=== PATIENT | male | born 1980 | race Caucasian/White ===

== ENCOUNTER 2024-03-17 20:38 | Inpatient (IN) ==
[2024-03-17] MEDS: SODIUM CHLORIDE 0.9% 1,000 ML IV SCH (21:16)
--- NOTE | 2024-03-17 21:19 | Emergency Department Note ---
Impression & Plan Depression with suicidal ideation, Suicide gesture, Carbon monoxide poisoning, Alcoholic intoxication ED Provider Note NAME: CAMERON Perdomo MCKEON AGE: 43 SEX: M : 1980 ARRIVES VIA: Walk-In INFORMANT: Patient, the patient's significant other is ED PROVIDER(S): Chalo Koo DO CHIEF COMPLAINT: Depression with SI HPI: The patient is a 43-year-old male who presented to the emergency department with his significant other for an evaluation of depression with suicidal gesture. The patient states that he has been feeling depressed recently. He states there is no specific stressor but he was not feeling himself today. He states that he went to a wooded area today and has been there all day. His significant other thought he was at work. He texted her today stating that he needed help and send and address. When the patient's significant other arrived she found him in his vehicle. He admitted that he had put a hose from the exhaust into his vehicle jukebox route driver compartment in an attempt to with suicidal gesture and carbon oxide poisoning. The patient states he has nausea. He also has a headache. He states he feels short of breath. The patient denies having any drug use but does admit to some alcohol use. The patient states that he has no therapist. He does not take any medication for the symptoms. He has not been admitted to the hospital for mental health issues. ROS: See above HPI for pertinent positives & negatives. A total of 10 systems reviewed and were otherwise negative. PAST MEDICAL HISTORY: See Below PAST SURGICAL HISTORY: See Below FAMILY HISTORY: See Below SOCIAL HISTORY: See Below HOME MEDICATIONS: See Below ALLERGIES: See Below VITALS: See Below PHYSICAL EXAMINATION: GENERAL: The patient is awake and alert. He is very anxious and tearful. EYES: The conjunctivae are injected bilaterally. The pupils are round and reactive. EARS, NOSE, MOUTH AND THROAT: The nose is without any evidence of any deformity. NECK: The neck is nontender and supple. RESPIRATORY: Normal respiratory effort is noted there is no evidence of wheezing rhonchi or rales CARDIOVASCULAR: Regular rate and rhythm noted there no murmurs rubs or gallops normal S1 normal S2. GASTROINTESTINAL: The abdomen is soft. Abdomen is nontender. MUSCULOSKELETAL/EXTREMITIES: There is no evidence of gross deformity full range of motion is noted in the hips and shoulders. SKIN: There is no obvious evidence of any rash. There are no petechiae, pallor or cyanosis noted. NEUROLOGIC: Patient is awake alert and oriented x3 strength is symmetric patellar reflexes are 2+ bilaterally PSYCH: The patient makes poor eye contact mostly evaluation. The patient is very tearful. His affect is flat. The patient mitts to continued thoughts of harming himself. MEDICAL DECISION MAKING: The patient is a 43-year-old male who presented to the emergency department after a significant suicidal gesture. The patient attempted to harm himself this evening with carbon oxide. The patient was placed on a nonrebreather mask upon arrival to the emergency department. I discussed the patient's laboratory and radiographic studies with him. I discussed his condition with the mental health child welfare caseworker. I discussed his condition with poison control. At this point they would recommend 4 hours total of nonrebreather mask. This would take his to approximately 1 AM. They also recommended 10 mg of dexamethasone now followed by 10 mg of dexamethasone orally for 2 days. The IV dose was ordered by myself. I discussed the patient's condition with his significant other as well as his other family members. Patient was signed out to Dr. Omer at change of shift. Please see his note for continuation of care and further disposition. Triage Nursing notes reviewed. Prior medical records reviewed Vital Signs: reviewed and remarkable for elevated blood pressure. Differential diagnosis: Mood disorder, infection, hypoglycemia, electrolyte abnormalities, cardiac sources, intracerebral event, toxicologic, trauma, neurologic, as well as other pathologies. ER treatment provided: See below Diagnostics interpreted by me: ECG: EKG was obtained in the emergency department. My interpretation is normal sinus rhythm at 86 bpm. There is no ectopy. There is no acute ST segment abnormalities noted. This was compared to a tracing from July 04, 2004. No changes were noted. Cardiac Monitoring: An order was placed for continuous cardiac monitoring. The monitor shows a rate of 98 bpm with sinus rhythm. Laboratory studies: As stated above and show below. Imaging studies: See below. Radiographic imaging was reviewed by myself Consultation(s): I discussed this case with the [facility]. They reviewed the patient's laboratory and radiographic studies. They recommend that we keep the patient on a nonrebreather mask for a total of 4 hours. They do not feel there is a reason to recheck the carbon monoxide level at that time. They also recommend 10 mg of dexamethasone now followed by 10 mg of dexamethasone orally for 2 days. The patient will be medically cleared after he has been on the nonrebreather for 4 hours total. I discussed this case with the emergency department off child welfare caseworker. I have personally spent greater than 45 minutes of critical care time in the direct management of this patient. This includes bedside care, interpretation of diagnostic studies, and testing, discussion with consultants, patient, and family members, and other required patient management activities. This 45 minutes is in excess of all separately billable procedures. Past Med/Surg History Problem List (Updated 03/18/24 @ 00:00 by Chalo Koo DO) Alcoholic intoxication (Acute) Carbon monoxide poisoning (Acute) Suicide gesture (Acute) Depression with suicidal ideation (Acute) Hemorrhoids AND POLYP BY RECTAL EXAM -REASON FOR UPCOMING PROCEDURE Encounter for pre-operative examination Hx of testicular cancer Smoker Annual physical exam Hemorrhoids Mild malnutrition Vitamin D deficiency Anal polyp Medical History History of testicular cancer 23-24 YR AGO, SX INTERVENTION Surgical History H/O lymph node biopsy History of removal of testicle RIGHT Family History Grandfather (Maternal) Depression Denies family history of Ovarian cancer Prostate cancer Diabetes Myocardial infarction Breast cancer Colorectal cancer Social History Smoking Status: Current every day smoker Tobacco Type: Cigarettes Age Started Using Tobacco: 19; packs per day: 0.5; Cigarettes Per Day: 10 CIGS PER DAY FOR PAST 20 YRS/ ADVISED NPO; Second Hand Exposure: Yes; Do You Dip or Chew Tobacco: No; Hx Alcohol Use: Yes Alcohol type: beer Alcohol type Comment: 1-3 Alcohol Intake Frequency: 4 or More x per/Week Alcohol Intake Frequency Comment: daily Hx Substance Use: Yes Non-Prescribed Medications: Marijuana Last Used Substance: Days (ago) Substance Use Type Other:: MARIJUANA A COUPLE TIMES A WEEK , NOT DAILY (ADVISED) Preferred Language: Greek Communication Ability: Effective Delivery Person Required: No Beliefs That Will Affect Care: None marital status: Single Current Living Situation: Significant Other current occupational status: employed current occupation: [employer] How many Children do You have: 0 Feels Safe at Home: Yes Childhood Exposure to Second-Hand Smoke: Yes Diet: vegetarian caffeine: Yes during the past year weight has: remained stable Dental Care, Regularly: No Physical Activity Frequency: Daily Seatbelt Use: always Sunscreen Use: Yes (sometimes.) Assistive Devices: Glasses Allergies Allergies Allergy/AdvReac Type Severity Reaction Status Date / Time latex Allergy Mild POWDER Verified 03/28/22 08:33 LATEX GLOVES - HANDS BREAK OUT Home Meds Home Medications Medication Instructions Recorded Confirmed No Known Home Medications 03/17/24 03/17/24 Results & Data (ED) Vital Signs Vital Signs - 24 hr 03/17/24 20:44 03/17/24 21:05 03/17/24 21:07 Temperature 36.6 C Temperature Source Temporal Artery Scan Pulse Rate 105 H 80 Pulse Rate [Apical] 85 Respiratory Rate 18 16 20 Respiratory Effort / Characteristics Non-Labored Non-Labored Respiratory Depth Normal Normal Respiratory Pattern Regular Blood Pressure 130/86 Blood Pressure [Left Arm] 141/87 H Blood Pressure Mean 100 Blood Pressure Mean [Left Arm] 105 Pulse Oximetry 99 100 100 Oxygen Delivery Method Room Air Non-rebreather Non-rebreather Oxygen Flow Rate 6 6 Sepsis Recent Fever Within 48 Hours No Sepsis New/Unexplained Change in Mental Status No Sepsis Action Taken by Nursing No Action Required 03/17/24 21:08 Temperature Temperature Source Pulse Rate 98 H Pulse Rate [Apical] Respiratory Rate Respiratory Effort / Characteristics Respiratory Depth Respiratory Pattern Blood Pressure Blood Pressure [Left Arm] Blood Pressure Mean Blood Pressure Mean [Left Arm] Pulse Oximetry Oxygen Delivery Method Oxygen Flow Rate Sepsis Recent Fever Within 48 Hours Sepsis New/Unexplained Change in Mental Status Sepsis Action Taken by Jail Medications Current Medication List: was personally reviewed by me Laboratory Data Attestation: I reviewed the patient's lab results. 03/17/24 21:05 03/17/24 21:05 Lab Results 03/17/24 03/17/24 03/17/24 Range/Units 21:05 21:26 23:00 WBC 13.94 H (4.8-10.8) K/ul RBC 5.55 (4.70-6.10) M/uL Hgb 17.1 (14.0-18.0) g/dl Hct 49.1 (42.0-52.0) % MCV 88.5 (80.0-100.0) fL MCH 30.8 (25.0-34.0) pg MCHC 34.8 (32.0-36.0) g/dL RDW Std Deviation 41.5 (36.4-46.3) fL RDW Coeff of Jose Francisco 12.8 (11.5-14.5) % Plt Count 349 (130-400) K/uL MPV 8.7 L (9.4-12.4) fL Immature Gran % (Auto) 0.2 % Neut % (Auto) 57.1 % Lymph % (Auto) 34.8 % Clark % (Auto) 5.9 % Eos % (Auto) 1.1 % Baso % (Auto) 0.9 % Neut # (Auto) 7.97 H (1.40-6.50) K/uL Lymph # (Auto) 4.85 H (1.20-3.40) K/uL Clark # (Auto) 0.82 H (0.11-0.59) K/uL Eos # (Auto) 0.15 (0.00-0.50) K/uL Baso # (Auto) 0.12 (0.00-0.20) K/uL Immature Gran # (Auto) 0.03 (0.01-0.20) K/uL PT 10.2 (9.0-12.0) Seconds INR 0.9 (0.9-1.1) APTT 27 (21-31) Seconds PTT Ratio 1.0 VBG pH 7.50 H (7.36-7.41) VBG pCO2 29 L (38-50) mmHg VBG pO2 < 20 mmHg VBG HCO3 23 mmol/L VBG O2 Saturation < 60.0 % VBG Base Excess 0.4 mEq/L Carboxyhemoglobin 13.8 H* 7.3 % THgb Sodium 139 (136-145) mmol/L Potassium 4.0 (3.5-5.1) mmol/L Chloride 103 (98-107) mmol/L Carbon Dioxide 22 (21-32) mmol/L Anion Gap 14 H (3-11) BUN 7 (6-23) mg/dl Creatinine 0.82 (0.6-1.4) mg/dl Est Cr Clr Drug Dosing 107.3 ml/min Est GFR ( Amer) 127.3 ml/min Est GFR (Non-Af Amer) 109.8 ml/min BUN/Creatinine Ratio 8.5 L (10-20) Glucose 85 (70-99(Fasting)) mg/dl Calcium 9.9 (8.6-10.3) mg/dl Magnesium 2.4 (1.7-2.4) mg/dl Total Bilirubin 0.8 (0.2-1.0) mg/dl AST 21 (13-39) U/L ALT 17 (7-52) U/L Alkaline Phosphatase 68 (34-104) U/L Total Creatine Kinase 113 (30-223) U/L Troponin I High Sens 3.2 (0-20) pg/ml Total Protein 8.4 H (6.0-8.3) gm/dl Albumin 5.2 H (3.4-5.0) gm/dl Globulin 3.2 (2.5-4.0) gm/dl Albumin/Globulin Ratio 1.6 (0.9-2) Lipase 21 (11-82) U/L Salicylates < 3.0 L (3.0-30) mg/dl Acetaminophen < 3 L (10-30) ug/ml Ethyl Alcohol mg/dL 132.3 H (<10.0) mg/dl SARS-CoV-2, RNA, NAAT NEGATIVE (NEGATIVE) Administered Medications Discontinued Medications Sodium Chloride (Nss) 1,000 mls @ 999 mls/hr IV .Q1H1M TATI Stop: 03/17/24 22:00 Last Infusion: 03/17/24 22:19 Dose: Infused Documented By: Admin: 03/17/24 21:16 Dose: 999 mls/hr Documented By: BASIM Imaging Data Attestation: I personally reviewed and interpreted this imaging study as follows: My Impression: 1 view chest x-ray was obtained in the emergency department. My interpretation is no free air or definite infiltrate, hypoventilation was noted, final report pending. Discharge Plan Visit Data Chief Complaint: Mental Health Evaluation Stated Complaint: ATTEMPTED SUICIDE, INHALED GAS/NASAL PAIN ED Provider: Balta Omer Discharge Problem: Depression with suicidal ideation, Suicide gesture, Carbon monoxide poisoning, Alcoholic intoxication Patient Disposition: Still a Patient Forms Stand Alone Forms: My [facility], Suicide Prevention Resources Prescriptions Prescriptions: No Action No Known Home Medications Referrals Referrals: Abhilash Antonio DO [Primary Care Provider] - Discharge Problem: Suicide gesture Qualifiers: Encounter type: initial encounter Qualified Code(s): X83.8XXA - Intentional self-harm by other specified means, initial encounter Carbon monoxide poisoning Qualifiers: Encounter type: initial encounter Injury intent: intentional self-harm Q ualified Code(s): T58.92XA - Toxic effect of carbon monoxide from unspecified source, intentional self-harm, initial encounter Alcoholic intoxication Qualifiers: Complication of substance-induced condition: with unspecified complication Q ualified Code(s): F10.929 - Alcohol use, unspecified with intoxication, unspecified
[2024-03-17 21:26] LABS: Base Excess VBG 0.4 mEq/L; HCO3 VBG 23 mmol/L; Oxygen Saturation VBG < 60.0 %; PCO2 VBG 29 mmHg (38-50); PO2 VBG < 20 mmHg
[2024-03-17 21:30] LABS: Basophils # (auto) 0.12 K/uL (0.00-0.20); Basophils % (auto) 0.9 %; Eosinophils # (auto) 0.15 K/uL (0.00-0.50); Eosinophils % (auto) 1.1 %; Hematocrit (blood only) 49.1 % (42.0-52.0); Hemoglobin 17.1 g/dl (14.0-18.0); Immature Granulocytes # (auto) 0.03 K/uL (0.01-0.20); Immature Granulocytes % (auto) 0.2 %; Lymphocytes # (auto) 4.85 K/uL (1.20-3.40); Lymphocytes % (auto) 34.8 %; Mean Corpuscular Hemoglobin 30.8 pg (25.0-34.0); Mean Corpuscular Hgb Conc 34.8 g/dL (32.0-36.0); Mean Corpuscular Volume 88.5 fL (80.0-100.0); Mean Platelet Volume 8.7 fL (9.4-12.4); Monocytes # (auto) 0.82 K/uL (0.11-0.59); Monocytes % (auto) 5.9 %; Neutrophils # (auto) 7.97 K/uL (1.40-6.50); Neutrophils % (auto) 57.1 %; Platelet Count 349 K/uL (130-400); RDW Coefficient of Variation 12.8 % (11.5-14.5); RDW Standard Deviation 41.5 fL (36.4-46.3); Red Blood Count 5.55 M/uL (4.70-6.10); White Blood Count 13.94 K/ul (4.8-10.8)
[2024-03-17 21:49] LABS: Albumin Globulin Ratio 1.6 (0.9-2); Albumin Level 5.2 gm/dl (3.4-5.0); BUN Creatinine Ratio 8.5 (10-20); Bilirubin,Total 0.8 mg/dl (0.2-1.0); Calcium 9.9 mg/dl (8.6-10.3); Creatinine Clr Calc Pharmacy 107.3 ml/min; Est GFR (African American) 127.3 ml/min; Est GFR (Non-African American) 109.8 ml/min; Globulin 3.2 gm/dl (2.5-4.0); Magnesium 2.4 mg/dl (1.7-2.4); Total Protein 8.4 gm/dl (6.0-8.3)
[2024-03-17 21:51] LABS: Acetaminophen < 3 ug/ml (10-30); Salicylate < 3.0 mg/dl (3.0-30)
[2024-03-17 21:59] LABS: INR 0.9 (0.9-1.1); Partial Thromboplastin Time 27 Seconds (21-31); Prothrombin Time 10.2 Seconds (9.0-12.0)
[2024-03-17 22:23] LABS: Troponin I High Sensitivity 3.2 pg/ml (0-20)
--- NOTE | 2024-03-18 00:01 | Emergency Department Note ---
ED Visit Note Patient received in signout from Dr. Koo and see his note for full details. Patient with a suicide attempt with carbon oxide. Some alcohol board upon arrival. Laboratory studies have been completed. Carbadox level downtrending and poison control previously consulted with no further recheck recommendations and only recommendation was for 10 mg oral dexamethasone twice daily for the next 2 days. Patient monitored to 1 AM to ensure clearance of the carbon monoxide on oxygen as well as processing the alcohol. Case management aware the patient for evaluation from mental health standpoint given unfortunate nature that this appears to be a suicide attempt. Inpatient psychiatric treatment will be pursued. Patient agreeable for voluntary inpatient mental health treatment and bed search will begin. Patient assessed around 2 AM and is sitting with significant other on the bed without complaints. No headache or nausea. Sipping on some water. Does not appear altered in any way. Poison control did contact and there were made aware of the patient's stability. Patient was evaluated and accepted by [facility] for further inpatient psychiatric care in the behavioral health unit on a 201. .
[2024-03-18 00:22] LABS: Appearance Urine Clear (Clear); Bilirubin Urine Negative (Negative); Blood Urine Negative (Negative); Color Urine Yellow; Glucose Urine UA Negative (Negative); Ketones Urine Negative (Negative); Leukocyte Esterase Urine Negative (Negative); Nitrite Urine Negative (Negative); Protein Urine Negative (Negative); Specific Gravity Urine 1.006 (1.000-1.030); Urobilinogen Urine Negative (Negative)
[2024-03-18] MEDS: dexAMETHasone**PF** 10 MG/ML VIAL IV ONE (00:26)
[2024-03-18 00:42] LABS: Amphetamines+Metham, Urine Neg (Neg); Barbiturates, Urine Neg (Neg); Benzodiazepine, Urine Neg (Neg); Cocaine, Urine Neg (Neg); Fentanyl, Urine Neg (Neg); MDMA (Ecstacy), Urine Neg (Neg); Marijuana, Urine Pos (Neg); Methadone, Urine Neg (Neg); Opiate, Urine Neg (Neg); Phencyclidine, Urine Neg (Neg)
[2024-03-18] MEDS ORDERED: SODIUM CHLORIDE 0.65% NA SOLN 45 ML (OCEAN) PRN (04:05)
[2024-03-18] MEDS ORDERED: ACETAMINOPHEN 325 MG TAB PO PRN (04:05)
[2024-03-18] MEDS ORDERED: BISMUTH SUBSALICYLATE LIQD 236 ML PO PRN (04:05)
[2024-03-18] MEDS ORDERED: MAGNESIUM HYDROXIDE SUSP 30 ML UDC PO PRN (04:05)
[2024-03-18] MEDS ORDERED: ALUMINUM/MAGNESIUM SUSP 30 ML UDC PO PRN (04:05)
[2024-03-18] MEDS ORDERED: hydrOXYzine HCl 25 MG TAB PO PRN ×2 (04:05)
--- NOTE | 2024-03-18 06:48 | XRay Report ---
XR chest 1V portable CLINICAL HISTORY: OD TECHNIQUE: Single frontal radiograph of the chest was obtained. Comparison: None available at the time of this dictation. FINDINGS: No lines and tubes are seen. The cardiomediastinal silhouette is normal. The lungs are clear. No evid ence of pleural effusion or pneumothorax. IMPRESSION: No acute chest disease. ACT 112: Negative or not required by law. Electronically signed by: Artur Rogers M.D. 03/18/2024 6:47 AM
[2024-03-18] MEDS: dexAMETHasone 4 MG TAB PO SCH (09:31)
--- NOTE | 2024-03-18 10:11 | Electrocardiogram Report ---
Test Reason : Blood Pressure : / mmHG Vent. Rate : 086 BPM Atrial Rate : 086 BPM P-R Int : 126 ms QRS Dur : 086 ms QT Int : 404 ms P-R-T Axes : 073 085 082 degrees QTc Int : 483 ms Normal sinus rhythm Prolonged QT Abnormal ECG When compared with ECG of 04-JUL-2004 17:53, QT has lengthened Confirmed by Chalo De La Cruz ([id number]) on 03/18/2024 10:11:12 AM Referred By: REFERRED SELF Confirmed By:Chalo De La Cruz
--- OUTSIDE RECORDS SUMMARY | 2024-03-18 10:37 | External Medical Summary | Summary of Care ---
Author Name Unknown Organization [facility] Address [address] [place] [address] Phone [phone] Care Team Providers Care Plate Cutter Name Role Phone Unavailable Primary Care Provider Unavailabl e Reason for Visit * Reason Onset Date Comments Pre Cert/Prior Auth 03/18/2024 Encounter Details Date Type Department Care Team (Late st Contact Info) Description 03/18/2024 Telephone BEHAVIORAL HEALTH CHILD WELFARE ASSISTANT [address] [place] [address] Sheila [place]ino, [place] [address] Pre Cert/Prior Auth Allergies No known active allergiesdocumented as of this encounter (statuses as of 03/18/2024) Medications No known medicationsdocumented as of this encounter (statuses as of 03/18/2024) Active Problems Problem Noted Date Diagnosed Date Testicular cancer Overview: surgery Liver lesion Overview: see MRI Varicocele documented as of this encounter (statuses as of 03/18/2024) Immunizations No known immunizationsdocumented as of this encounter Social History Tobacco Use Types Packs/Day Years Used Date Smoking Tobacco: Every Day Cigarettes 0.8 14 Smokeless Tobacco: Never Alcohol Use Standard Drinks/Week Comments Yes 0 (1 standard drink = 0.6 oz pur e alcohol) 1-2 beers/day Utilities Answer Date Recorded Do you have trouble paying y our heating, water, or electric bill? (Adult - for ages 18 years and over) Not on file 03/16/2024 Is your family able to pay t he heat, water, or electric bill? (Household - for ages 0-17 years) Not on file 03/16/2024 Does your family have access to good internet? (Household - for ages 0-17 years) Not on file 03/16/2024 Social Connections Answer Date Recorded How often do you feel lonely or isolated from those around you? (Adult - for ages 18 years and over) Not on file 03/16/2024 Sex and Gender Information Value Date Recorded Sex Assigned at Not on file Gender Identity Not on file Sexual Orientation Not on file documented as of this encounter Miscellaneous Notes * Telephone Encounter - Sheila Lino RN - 03/18/2024 3:23 AM EDT This is a nurse triage encounter. If additional action is needed, do not route to nurse triage. Please route encounter to the applicable clinic pool. Daphne from [facility] [phone] calling for a pre cert. TT sent to [facility] behavior health documented in this encounter Plan of Treatment Health Maintenance Due Date Last Done Comments Lipid Panel 1980 Pneumococcal Vaccine: Pediat rics (0 to 5 Years) and At-Risk Patients (6 to 64 Years) (1 of 2 - PCV) 1988 Depression Screening 1994 HIV Screening 1997 Hepatitis C Screening 2000 DTaP,Tdap,and Td Vaccines (1 - Tdap) 2001 Hepatitis B (1 of 3 - 19+ 3- dose series) 2001 COVID-19 Vaccine ( - 2022-2 4 season) 2023 Influenza Vaccine (FLU shot) (Season Ended) 2024 GARDASIL-HPV IMMUNIZATION SERIES Aged Out No longer eligible based on patient's age to complete this topic MENINGOCOCCAL (MENACTRA/MENVEO) Aged Out No longer eligible based on patient's age to complete this topic documented as of this encounter Medical Devices Not on filedocumented as of this encounter
[2024-03-18] MEDS: SERTRALINE HCL 50 MG TABLET PO SCH (13:35)
--- NOTE | 2024-03-18 14:56 | Psychiatric Progress Note ---
Date of Service March 18, 2024 Impression / Recommendations Impression Laura Saldaña is a 43-year-old white male domiciled with partner h/o depression who presents with self interrupted suicide attempt of self-induced carbon monoxide poisoning by connecting a hose to his exhaust and into his car in the context of escalating financial and work stressors. A: Patient presents symptoms consistent with major depressive disorder recurrent episodes. No evidence of past donato, psychosis, PTSD, personality disorders. He is karen to treatment and has never been diagnosed with a mental health condition. Likely his suicidal ideation was in the context of a major depressive episode and escalating stressors. He presented with mild carbon monoxide poisoning. Labs reviewed: CMP and UA within normal limits. WBC significant for reactive leukocytosis. Blood alcohol on admission is 132 and no t suspicious for alcohol withdrawal. UDS was positive for THC. EKG showed prolonged QT see interval. Plan to start sertraline and repeat EKG. Medication side effects, adverse effects discussed with the patient and he is agreeable. Overall, I spent a total of 60 minutes with this case including review of chart records, nursing report, review of lab work, direct evaluation of the patient at bedside, counseling the patient, multidisciplinary team meeting, orders, and documentation in the electronic health record. (1) Suicide attempt: (2) MDD (major depressive disorder), recurrent episode, moderate: (3) Carbon monoxide poisoning: Plan 03/18/2024: Start sertraline 50 mg daily. Encourage use of hydroxyzine for anxiety and sleep. Repeat EKG. Continue dexamethasone as per ED recommendation. Order TSH w/ reflex, Vit D, B12. Inventory Assets Strengths: supports, employement Needs: outpatient connection, counseling Suicide Risk Level Suicide Risk Level: Moderate (q15 min suicide checks) Risk Factors Assessment Male: Yes : Yes Do You Have Access To A Gun?: No Health Problems: Yes Mental Health Diagnoses: Yes Substance Use Disorders: No Previous Attempt: No Family History of Suicide: Yes Previous Psychiatric Hospitalization: No Hopelessness: No Protective Factors Assessment Denominational Beliefs: No : Yes Responsible for Young Children: No Employed: Yes Stable Relationships: Yes Supportive Family: Yes Good Rapport with Provider: Yes Absence of Any Risk Factors Above: No Interval History Identifying Information Laura Saldaña is a 43-year-old white male domiciled with partner h/o depression who presents with self interrupted suicide attempt of self-induced carbon monoxide poisoning by connecting a hose to his exhaust and into his car in the context of escalating financial and work stressors. Chief Complaint Suicidal ideation Review of Systems Sleep Information Total Hours of Sleep: 1.75 Sleep Comments: New overnight admission Meal Information Percent Meal Consumed - Breakfast: 90 Percent Meal Consumed - Lunch: 100 Subjective Subjective Patient was seen & assessed and interval progress reviewed with nursing and social work Patient reports yesterday morning he felt suicidal and did not go to work. He drove around for hours and he found a spot in the [place]. He brought a garden ho se from home. He contemplated using it for hours and was back and forth about it. He connected a hose to his exhaust and into his car, raised the windows, and ran his car for "5 to 10 minutes". He reported having sinus inflammation, shortness of breath and the windows fogged up. He turned off the car and then contacted his partner. He got out of the car and sat in front of the car and then his partner arrived and drove him to the hospital. He denies having suicidal ideation in the prior days. He complained of ongoing anxiety for the past few months. Reports that his work has been more stressful due to increased demands and because of less revenue in the company he is making less money and that has caused financial stressors. Additionally is ruminating about medical concerns about his overall wellbeing. Regularly watches the news and the recent wars have also been stressing him out. Reports for the past 4 months has been more isolated, has decreased appetite, has decreased interest in his activities such as golfing, has decreased concentration, has less motivation, low mood, and less pleasure in his activities. Reports he is able to fall and stay asleep. He denies a history of decreased sleep with increased mood, energy, goal directed activity. He denies a history of auditory or visual hallucinations. He reports past suicidal ideation in the summer 2000. Reports being stressed and upset after the events of 911. During that time he attempted to overdose on sleeping pills and alcohol and woke up the next day with vomit around him and feeling "terrible". Family psychiatric history significant for maternal grandfather who had alcoholism and depression and committed suicide. He denies other mental health problems or substance use problems in his family. Reports having a supportive childhood. Grew up in [place]. He denies physical/emotional/sexual abuse. 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 He lives with his partner of 5 years. He has 1 biological brother, 1 biological sister and 1 adopted sibling. Reports daily caffeine intake in the mornings. 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 Reports smoking cannabis flower 2-3 times weekly to enhance experiences. He denies history of drug or alcohol problems. Medical problems significant for testicular cancer in his teens that was not metastatic and treated with surgery; .Hemorrhoids Physical Exam Mental Examination Appearance: Well Groomed (sunglasses) Eye Contact: Fleeting Contact Motor Behavior: Slowed Speech: Soft Mood: Anxious Affect: Congruent and Constricted Thought Process: Intact, Linear and Logical Thought Content: Intact Hallucinations: None Insight: Fair Judgement: Poor Vital Signs (Past 24 Hours) Last Vital Signs Temp 37.1 C 03/18/24 04:24 Pulse 60 03/18/24 04:24 Resp 18 03/18/24 04:24 BP 118/79 03/18/24 04:24 Pulse Ox 98 03/18/24 04:24 O2 Del Method Room Air 03/18/24 04:24 O2 Flow Rate 10 03/17/24 23:00 Results & Data ([facility]) Laboratory Results Laboratory Results - last 24 hr 03/17/24 03/17/24 03/17/24 21:05 21:26 23:00 WBC 13.94 H RBC 5.55 Hgb 17.1 Hct 49.1 MCV 88.5 MCH 30.8 MCHC 34.8 RDW Std Deviation 41.5 RDW Coeff of Jose Francisco 12.8 Plt Count 349 MPV 8.7 L Immature Gran % (Auto) 0.2 Neut % (Auto) 57.1 Lymph % (Auto) 34.8 Crosby % (Auto) 5.9 Eos % (Auto) 1.1 Baso % (Auto) 0.9 Neut # (Auto) 7.97 H Lymph # (Auto) 4.85 H Crosby # (Auto) 0.82 H Eos # (Auto) 0.15 Baso # (Auto) 0.12 Immature Gran # (Auto) 0.03 PT 10.2 INR 0.9 APTT 27 PTT Ratio 1.0 VBG pH 7.50 H VBG pCO2 29 L VBG pO2 < 20 VBG HCO3 23 VBG O2 Saturation < 60.0 VBG Base Excess 0.4 Carboxyhemoglobin 13.8 H* 7.3 Sodium 139 Potassium 4.0 Chloride 103 Carbon Dioxide 22 Anion Gap 14 H BUN 7 Creatinine 0.82 Est Cr Clr Drug Dosing 107.3 Est GFR ( Amer) 127.3 Est GFR (Non-Af Amer) 109.8 BUN/Creatinine Ratio 8.5 L Glucose 85 Calcium 9.9 Magnesium 2.4 Total Bilirubin 0.8 AST 21 ALT 17 Alkaline Phosphatase 68 Total Creatine Kinase 113 Troponin I High Sens 3.2 Total Protein 8.4 H Albumin 5.2 H Globulin 3.2 Albumin/Globulin Ratio 1.6 Lipase 21 Urine Color Urine Appearance Urine pH Ur Specific Carlton Urine Protein Urine Glucose (UA) Urine Ketones Urine Blood Urine Nitrite Urine Bilirubin Urine Urobilinogen Ur Leukocyte Esterase Salicylates < 3.0 L Urine Opiates Screen Ur Methadone, Qual Urine Fentanyl Screen Acetaminophen < 3 L Urine Barbiturates Ur Phencyclidine (PCP) U Amphetamin/Meth Scrn MDMA (Ecstasy) Screen U Benzodiazepines Scrn Ur Cocaine Metabolite U Marijuana (THC) Screen U Marijuana THC Carboxy Drug Screen Comment Ethyl Alcohol mg/dL 132.3 H SARS-CoV-2, RNA, NAAT NEGATIVE 03/18/24 Unknown WBC RBC Hgb Hct MCV MCH MCHC RDW Std Deviation RDW Coeff of Jose Francisco Plt Count MPV Immature Gran % (Auto) Neut % (Auto) Lymph % (Auto) Crosby % (Auto) Eos % (Auto) Baso % (Auto) Neut # (Auto) Lymph # (Auto) Crosby # (Auto) Eos # (Auto) Baso # (Auto) Immature Gran # (Auto) PT INR APTT PTT Ratio VBG pH VBG pCO2 VBG pO2 VBG HCO3 VBG O2 Saturation VBG Base Excess Carboxyhemoglobin Sodium Potassium Chloride Carbon Dioxide Anion Gap BUN Creatinine Est Cr Clr Drug Dosing Est GFR ( Amer) Est GFR (Non-Af Amer) BUN/Creatinine Ratio Glucose Calcium Magnesium Total Bilirubin AST ALT Alkaline Phosphatase Total Creatine Kinase Troponin I High Sens Total Protein Albumin Globulin Albumin/Globulin Ratio Lipase Urine Color Yellow Urine Appearance Clear Urine pH 6.0 Ur Specific Carlton 1.006 Urine Protein Negative Urine Glucose (UA) Negative Urine Ketones Negative Urine Blood Negative Urine Nitrite Negative Urine Bilirubin Negative Urine Urobilinogen Negative Ur Leukocyte Esterase Negative Salicylates Urine Opiates Screen Neg Ur Methadone, Qual Neg Urine Fentanyl Screen Neg Acetaminophen Urine Barbiturates Neg Ur Phencyclidine (PCP) Neg U Amphetamin/Meth Scrn Neg MDMA (Ecstasy) Screen Neg U Benzodiazepines Scrn Neg Ur Cocaine Metabolite Neg U Marijuana (THC) Screen Pos H U Marijuana THC Carboxy Pending Drug Screen Comment Pending Ethyl Alcohol mg/dL SARS-CoV-2, RNA, NAAT Current Inpatient Medications Current Inpatient Medications: Current Inpatient Medications Acetaminophen (Acetaminophen 325 Mg Tab) 650 mg PO Q4H PRN PRN Reason: Headache or Minor Fever Stop: 04/17/24 04:04 Al Hydrox/Mg Hydrox/Simethicone (Aluminum/Magnesium Susp 30 Ml Udc) 30 ml PO Q4H PRN PRN Reason: GI Upset Stop: 04/17/24 04:04 Bismuth Subsalicylate (Bismuth Subsalicylate Liqd 236 Ml) 15 ml PO PRN PRN PRN Reason: Loose Stool Stop: 04/17/24 04:04 Dexamethasone (Dexamethasone 4 Mg Tab) 10 mg PO QAM TATI Stop: 03/19/24 09:01 Last Admin: 03/18/24 09:31 Dose: 10 mg Hydroxyzine HCl (Hydroxyzine Hcl 25 Mg Tab) 50 mg PO HSZ PRN PRN Reason: Insomnia Stop: 04/17/24 04:04 Hydroxyzine HCl (Hydroxyzine Hcl 25 Mg Tab) 25 mg PO Q4H PRN PRN Reason: Anxiety Stop: 04/17/24 04:04 Magnesium Hydroxide (Magnesium Hydroxide Susp 30 Ml Udc) 30 ml PO DAILY PRN PRN Reason: Constipation Stop: 04/17/24 04:04 Sertraline HCl (Sertraline Hcl 50 Mg Tablet) 50 mg PO QAM TATI Stop: 04/17/24 12:29 Last Admin: 03/18/24 13:35 Dose: 50 mg Sodium Chloride (Sodium Chloride 0.65% Na Soln 45 Ml ([place])) 1 - 2 sprays NA PRN PRN PRN Reason: Nasal Dryness/Congestion Stop: 04/17/24 04:04 Mental Health & Subst Abuse Tx Therapist Name of Therapist: None [employer] Name of [employer]: None Post Discharge Appointments Primary Care Physician Name Of Family Doctor/PCP: Dr. Abhilash MARINA (3) Carbon monoxide poisoning Encounter type: initial encounter Injury intent: intentional self-harm Qualified Code(s): T58.92XA - Toxic effect of carbon monoxide from unspecified source, intentional self-harm, initial encounter
--- NOTE | 2024-03-18 16:05 | History & Physical ---
Date of Service March 18, 2024 Impression / Recommendations Impression Laura Saldaña is a 43-year-old white male domiciled with partner h/o depression who presents with self interrupted suicide attempt of self-induced carbon monoxide poisoning by connecting a hose to his exhaust and into his car in the context of escalating financial and work stressors. A: Patient presents symptoms consistent with major depressive disorder recurrent episodes. No evidence of past donato, psychosis, PTSD, personality disorders. He is karen to treatment and has never been diagnosed with a mental health condition. Likely his suicidal ideation was in the context of a major depressive episode and escalating stressors. He presented with mild carbon monoxide poisoning. Labs reviewed: CMP and UA within normal limits. WBC significant for reactive leukocytosis. Blood alcohol on admission is 132 and no t suspicious for alcohol withdrawal. UDS was positive for THC. EKG showed prolonged QT see interval. Plan to start sertraline and repeat EKG. Medication side effects, adverse effects discussed with the patient and he is agreeable. Overall, I spent a total of 60 minutes with this case including review of chart records, nursing report, review of lab work, direct evaluation of the patient at bedside, counseling the patient, multidisciplinary team meeting, orders, and documentation in the electronic health record. (1) Suicide attempt: (2) MDD (major depressive disorder), recurrent episode, moderate: (3) Carbon monoxide poisoning: Encounter type: initial encounter Injury intent: intentional self-harm Qualified Code(s): T58.92XA - Toxic effect of carbon monoxide from unspecified source, intentional self-harm, initial encounter Plan 03/18/2024: Start sertraline 50 mg daily. Encourage use of hydroxyzine for anxiety and sleep. Repeat EKG. Continue dexamethasone as per ED recommendation. Order TSH w/ reflex, Vit D, B12. Inventory Assets Strengths: supports, employement Needs: outpatient connection, counseling Suicide Risk Level Suicide Risk Level: Moderate (q15 min suicide checks) Risk Factors Assessment Male: Yes : Yes Do You Have Access To A Gun?: No Health Problems: Yes Mental Health Diagnoses: Yes Substance Use Disorders: No Previous Attempt: No Family History of Suicide: Yes Previous Psychiatric Hospitalization: No Hopelessness: No Protective Factors Assessment Spiritism Beliefs: No : Yes Responsible for Young Children: No Employed: Yes Stable Relationships: Yes Supportive Family: Yes Good Rapport with Provider: Yes Absence of Any Risk Factors Above: No Psychiatric History Identifying Data Laura Saldaña is a 43-year-old white male domiciled with partner h/o depression who presents with self interrupted suicide attempt of self-induced carbon monoxide poisoning by connecting a hose to his exhaust and into his car in the context of escalating financial and work stressors. Chief Complaint Suicidal ideation History of Present Illness Patient was seen & assessed and interval progress reviewed with nursing and social work Patient reports yesterday morning he felt suicidal and did not go to work. He drove around for hours and he found a spot in the [place]. He brought a garden hose from home. He contemplated using it for hours and was back and forth about it. He connected a hose to his exhaust and into his car, raised the windows, and ran his car for "5 to 10 minutes". He reported having sinus inflammation, shortness of breath and the windows fogged up. He turned off the car and then contacted his partner. He got out of the car and sat in front of the car and then his partner arrived and drove him to the hospital. He denies having suicidal ideation in the prior days. He complained of ongoing anxiety for the past few months. Reports that his work has been more stressful due to increased demands and because of less revenue in the company he is making less money and that has caused financial stressors. Additionally is ruminating about medical concerns about his overall wellbeing. Regularly watches the news and the recent wars have also been stressing him out. Reports for the past 4 months has been more isolated, has decreased appetite, has decreased interest in his activities such as golfing, has decreased concentration, has less motivation, low mood, and less pleasure in his activities. Reports he is able to fall and stay asleep. He denies a history of decreased sleep with increased mood, energy, goal directed activity. He denies a history of auditory or visual hallucinations. He reports past suicidal ideation in the summer 2000. Reports being stressed and upset after the events of 911. During that time he attempted to overdose on sleeping pills and alcohol and woke up the next day with vomit around him and feeling "terrible". Family psychiatric history significant for maternal grandfather who had alcoholism and depression and committed suicide. He denies other mental health problems or substance use problems in his family. Reports having a supportive childhood. Grew up in [place]. He denies physical/emot ional/sexual abuse. 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 He lives with his partner of 5 years. He has 1 biological brother, 1 biological sister and 1 adopted sibling. Reports daily caffeine intake in the mornings. 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 Reports smoking cannabis flower 2-3 times weekly to enhance experiences. He denies history of drug or alcohol problems. Medical problems significant for testicular cancer in his teens that was not metastatic and treated with surgery; Hemorrhoids Past Psychiatric History Current Psychiatric Diagnosis: MDD Do You Have Access To A Gun?: No History of Previous Suicide Attempt: Yes (19 or 20 yrs ago) Allergies Allergy/AdvReac Type Severity Reaction Status Date / Time latex Allergy Mild POWDER Verified 03/28/22 08:33 LATEX GLOVES - HANDS BREAK OUT Home Medications Medication Instructions Recorded Confirmed Type No Known Home Medications 03/17/24 03/17/24 History Family History Family Mental Health History Comment: maternal grandfather - alcoholism, by suicide Alcohol History Hx of Alcohol Use Over the Past 12 Months: Yes (Social) AUDIT Total Score: 8 Smoking Use Have You Smoked or Used Tobacco Products in the Last 30 Days: Yes tobacco type: cigarettes Smoking Status: Current every day smoker Smoking packs per day: 0.5 Substance History Hx of Prescription Med Misuse Over the Past 12 Months: No Hx of Over the Counter Med Misuse Over the Past 12 Months: No Hx of Inhalent Misuse Over the Past 12 Months: No Hx of Organic Substance Use Over the Past 12 Months: Yes (Marijuana) Hx of Illegal Substances/Street Drug Use Over Past 12 Months: No Problems as a Result of Past Substance Use: None Identified Personal History Living Arrangements: Home Highest Grade Completed: Some College Marital Status: Living w/ Signif. Other Number Of Children: 0 Beliefs That Will Affect Care: None Patient History Medical History History of testicular cancer 23-24 YR AGO, SX INTERVENTION Surgical History H/O lymph node biopsy History of removal of testicle RIGHT Family History Grandfather (Maternal) Depression Denies family history of Ovarian cancer Prostate cancer Diabetes Myocardial infarction Breast cancer Colorectal cancer Social History Smoking Status: Current every day smoker Tobacco Type: Cigarettes Age Started Using Tobacco: 19; packs per day: 0.5; Cigarettes Per Day: 10 CIGS PER DAY FOR PAST 20 YRS/ ADVISED NPO; Second Hand Exposure: Yes; Do You Dip or Chew Tobacco: No; Hx Alcohol Use: Yes Alcohol type: beer Alcohol type Comment: 1-3 Alcohol Intake Frequency: 4 or More x per/Week Alcohol Intake Frequency Comment: daily Hx Substance Use: Yes Non-Prescribed Medications: Marijuana Last Used Substance: Days (ago) Substance Use Type Other:: MARIJUANA A COUPLE TIMES A WEEK , NOT DAILY (ADVISED) Preferred Language: Latvian Communication Ability: Effective Hospital Superintendent Required: No Beliefs That Will Affect Care: None marital status: Single Current Living Situation: Significant Other current occupational status: employed current occupation: [employer] How many Children do You have: 0 Feels Safe at Home: Yes Childhood Exposure to Second-Hand Smoke: Yes Diet: vegetarian caffeine: Yes during the past year weight has: remained stable Dental Care, Regularly: No Physical Activity Frequency: Daily Seatbelt Use: always Sunscreen Use: Yes (sometimes.) Gender Identity: Male Assistive Devices: Glasses Physical Exam Mental Examination: Appearance: Well Groomed (sunglasses) Eye Contact: Fleeting Contact Motor Behavior: Slowed Speech: Soft Mood: Anxious Affect: Congruent and Constricted Thought Process: Intact, Linear and Logical Thought Content: Intact Hallucinations: None Insight: Fair Judgement: Poor Vital Signs (Past 24 Hours): Last Vital Signs Temp 37.1 C 03/18/24 04:24 Pulse 60 03/18/24 04:24 Resp 18 03/18/24 04:24 BP 118/79 03/18/24 04:24 Pulse Ox 98 03/18/24 04:24 O2 Del Method Room Air 03/18/24 04:24 O2 Flow Rate 10 03/17/24 23:00 Results & Data ([facility]) Laboratory Results Laboratory Results - last 24 hr 03/17/24 03/17/24 03/17/24 21:05 21:26 23:00 WBC 13.94 H RBC 5.55 Hgb 17.1 Hct 49.1 MCV 88.5 MCH 30.8 MCHC 34.8 RDW Std Deviation 41.5 RDW Coeff of [place] 12.8 Plt Count 349 MPV 8.7 L Immature Gran % (Auto) 0.2 Neut % (Auto) 57.1 Lymph % (Auto) 34.8 [place] % (Auto) 5.9 Eos % (Auto) 1.1 Baso % (Auto) 0.9 Neut # (Auto) 7.97 H Lymph # (Auto) 4.85 H [place] # (Auto) 0.82 H Eos # (Auto) 0.15 Baso # (Auto) 0.12 Immature Gran # (Auto) 0.03 PT 10.2 INR 0.9 APTT 27 PTT Ratio 1.0 VBG pH 7.50 H VBG pCO2 29 L VBG pO2 < 20 VBG HCO3 23 VBG O2 Saturation < 60.0 VBG Base Excess 0.4 Carboxyhemoglobin 13.8 H* 7.3 Sodium 139 Potassium 4.0 Chloride 103 Carbon Dioxide 22 Anion Gap 14 H BUN 7 Creatinine 0.82 Est Cr Clr Drug Dosing 107.3 Est GFR ( Amer) 127.3 Est GFR (Non-Af Amer) 109.8 BUN/Creatinine Ratio 8.5 L Glucose 85 Calcium 9.9 Magnesium 2.4 Total Bilirubin 0.8 AST 21 ALT 17 Alkaline Phosphatase 68 Total Creatine Kinase 113 Troponin I High Sens 3.2 Total Protein 8.4 H Albumin 5.2 H Globulin 3.2 Albumin/Globulin Ratio 1.6 Lipase 21 Urine Color Urine Appearance Urine pH Ur Specific [place] Urine Protein Urine Glucose (UA) Urine Ketones Urine Blood Urine Nitrite Urine Bilirubin Urine Urobilinogen Ur Leukocyte Esterase Salicylates < 3.0 L Urine Opiates Screen Ur Methadone, Qual Urine Fentanyl Screen Acetaminophen < 3 L Urine Barbiturates Ur Phencyclidine (PCP) U Amphetamin/Meth Scrn MDMA (Ecstasy) Screen U Benzodiazepines Scrn Ur Cocaine Metabolite U Marijuana (THC) Screen U Marijuana THC Carboxy Drug Screen Comment Ethyl Alcohol mg/dL 132.3 H SARS-CoV-2, RNA, NAAT NEGATIVE 03/18/24 Unknown WBC RBC Hgb Hct MCV MCH MCHC RDW Std Deviation RDW Coeff of [place] Plt Count MPV Immature Gran % (Auto) Neut % (Auto) Lymph % (Auto) [place] % (Auto) Eos % (Auto) Baso % (Auto) Neut # (Auto) Lymph # (Auto) [place] # (Auto) Eos # (Auto) Baso # (Auto) Immature Gran # (Auto) PT INR APTT PTT Ratio VBG pH VBG pCO2 VBG pO2 VBG HCO3 VBG O2 Saturation VBG Base Excess Carboxyhemoglobin Sodium Potassium Chloride Carbon Dioxide Anion Gap BUN Creatinine Est Cr Clr Drug Dosing Est GFR ( Amer) Est GFR (Non-Af Amer) BUN/Creatinine Ratio Glucose Calcium Magnesium Total Bilirubin AST ALT Alkaline Phosphatase Total Creatine Kinase Troponin I High Sens Total Protein Albumin Globulin Albumin/Globulin Ratio Lipase Urine Color Yellow Urine Appearance Clear Urine pH 6.0 Ur Specific [place] 1.006 Urine Protein Negative Urine Glucose (UA) Negative Urine Ketones Negative Urine Blood Negative Urine Nitrite Negative Urine Bilirubin Negative Urine Urobilinogen Negative Ur Leukocyte Esterase Negative Salicylates Urine Opiates Screen Neg Ur Methadone, Qual Neg Urine Fentanyl Screen Neg Acetaminophen Urine Barbiturates Neg Ur Phencyclidine (PCP) Neg U Amphetamin/Meth Scrn Neg MDMA (Ecstasy) Screen Neg U Benzodiazepines Scrn Neg Ur Cocaine Metabolite Neg U Marijuana (THC) Screen Pos H U Marijuana THC Carboxy Pending Drug Screen Comment Pending Ethyl Alcohol mg/dL SARS-CoV-2, RNA, NAAT Current Inpatient Medications Current Inpatient Medications: Current Inpatient Medications Acetaminophen (Acetaminophen 325 Mg Tab) 650 mg PO Q4H PRN PRN Reason: Headache or Minor Fever Stop: 04/17/24 04:04 Al Hydrox/Mg Hydrox/Simethicone (Aluminum/Magnesium Susp 30 Ml Udc) 30 ml PO Q4H PRN PRN Reason: GI Upset Stop: 04/17/24 04:04 Bismuth Subsalicylate (Bismuth Subsalicylate Liqd 236 Ml) 15 ml PO PRN PRN PRN Reason: Loose Stool Stop: 04/17/24 04:04 Dexamethasone (Dexamethasone 4 Mg Tab) 10 mg PO QAM TATI Stop: 03/19/24 09:01 Last Admin: 03/18/24 09:31 Dose: 10 mg Hydroxyzine HCl (Hydroxyzine Hcl 25 Mg Tab) 50 mg PO HSZ PRN PRN Reason: Insomnia Stop: 04/17/24 04:04 Hydroxyzine HCl (Hydroxyzine Hcl 25 Mg Tab) 25 mg PO Q4H PRN PRN Reason: Anxiety Stop: 04/17/24 04:04 Magnesium Hydroxide (Magnesium Hydroxide Susp 30 Ml Udc) 30 ml PO DAILY PRN PRN Reason: Constipation Stop: 04/17/24 04:04 Sertraline HCl (Sertraline Hcl 50 Mg Tablet) 50 mg PO [facility] Stop: 04/17/24 12:29 Last Admin: 03/18/24 13:35 Dose: 50 mg Sodium Chloride (Sodium Chloride 0.65% Na Soln 45 Ml ([place])) 1 - 2 sprays NA PRN PRN PRN Reason: Nasal Dryness/Congestion Stop: 04/17/24 04:04
--- NOTE | 2024-03-19 10:52 | Electrocardiogram Report ---
Test Reason : Blood Pressure : / mmHG Vent. Rate : 065 BPM Atrial Rate : 065 BPM P-R Int : 116 ms QRS Dur : 096 ms QT Int : 442 ms P-R-T Axes : 000 091 078 degrees QTc Int : 459 ms Normal sinus rhythm Rightward axis Borderline ECG When compared with ECG of 17-MAR-2024 21:02, No significant change was found Confirmed by Chalo De La Cruz ([id number]) on 03/19/2024 10:51:34 AM Referred By: REFERRED SELF Confirmed By:Chalo De La Cruz
--- NOTE | 2024-03-19 14:12 | Psychiatric Progress Note ---
Date of Service March 19, 2024 Impression / Recommendations Impression Laura Saldaña is a 43-year-old white male domiciled with partner h/o depression who presents with self interrupted suicide attempt of self-induced carbon monoxide poisoning by connecting a hose to his exhaust and into his car in the context of escalating financial and work stressors. A: Patient continues to present a depressed affect. He was encouraged to use as needed Vistaril for anxiety and sleep. New information from partner reveals potential gambling addiction and further financial stressors. Patient was educated about SSRI antidepressants, expected side effects or adverse effects, and potential for improvement; agreeable. Overall, I spent a total of 40 minutes with this case including review of chart records, nursing report, review of lab work, direct evaluation of the patient at bedside, counseling the patient, multidisciplinary team meeting, orders, and documentation in the electronic health record. (1) Suicide attempt: (2) MDD (major depressive disorder), recurrent episode, moderate: (3) Carbon monoxide poisoning: Plan 03/19/2024: Continue medications and treatment plan. 03/18/2024: Start sertraline 50 mg daily. Encourage use of hydroxyzine for anxiety and sleep. Repeat EKG. Continue dexamethasone as per ED recommendation. Order TSH w/ reflex, Vit D, B12. Inventory Assets Strengths: supports, employement Needs: outpatient connection, counseling Suicide Risk Level Suicide Risk Level: Moderate (q15 min suicide checks) Risk Factors Assessment Male: Yes : Yes Do You Have Access To A Gun?: No Health Problems: Yes Mental Health Diagnoses: Yes Substance Use Disorders: No Previous Attempt: No Family History of Suicide: Yes Previous Psychiatric Hospitalization: No Hopelessness: No Protective Factors Assessment Taoism Beliefs: No : Yes Responsible for Young Children: No Employed: Yes Stable Relationships: Yes Supportive Family: Yes Good Rapport with Provider: Yes Absence of Any Risk Factors Above: No Interval History Identifying Information Laura Saldaña is a 43-year-old white male domiciled with partner h/o depression who presents with self interrupted suicide attempt of self-induced carbon monoxide poisoning by connecting a hose to his exhaust and into his car in the context of escalating financial and work stressors. Chief Complaint Depression Review of Systems Sleep Information Total Hours of Sleep: 7.30 Sleep Comments: New overnight admission Meal Information Percent Meal Consumed - Breakfast: 100 Percent Meal Consumed - Lunch: 100 Percent Meal Consumed - Dinner: 90 Subjective Subjective Patient was seen & assessed and interval progress reviewed with treatment team nursing and social work The patient appears constricted with limited reactivity and mild tearfulness. He reports having problems falling asleep however is able to maintain sleep for 5 hours nightly. He does not feel rested. He denies active and passive suicidal ideation. He reports feeling guilt about his recent actions and his contributions to problems in his family. He expressed some concern about medication side effects and was educated and reassured. Reflected on depression and past dysfunction. Collateral from partner: Patient has a gambling problem which has severely impacted finances. Patient has been dishonest about the money with family. Physical Exam Mental Examination Appearance: Well Groomed (sunglasses) Eye Contact: Fleeting Contact Motor Behavior: Slowed Speech: Soft Mood: Anxious Affect: Congruent and Constricted Thought Process: Intact, Linear and Logical Thought Content: Intact Hallucinations: None Insight: Fair Judgement: Poor Vital Signs (Past 24 Hours) Last Vital Signs Temp 36.6 C 03/19/24 06:29 Pulse 81 03/19/24 06:30 Resp 16 03/19/24 06:29 BP 100/62 03/19/24 06:30 Pulse Ox 98 03/18/24 04:24 O2 Del Method Room Air 03/18/24 04:24 O2 Flow Rate 10 03/17/24 23:00 Results & Data ([facility]) Laboratory Results Laboratory Results - last 24 hr 03/19/24 09:41 Vitamin B12 192 25-OH Vitamin D Total 12.3 L TSH 0.916 Current Inpatient Medications Current Inpatient Medications: Current Inpatient Medications Acetaminophen (Acetaminophen 325 Mg Tab) 650 mg PO Q4H PRN PRN Reason: Headache or Minor Fever Stop: 04/17/24 04:04 Al Hydrox/Mg Hydrox/Simethicone (Aluminum/Magnesium Susp 30 Ml Udc) 30 ml PO Q4H PRN PRN Reason: GI Upset Stop: 04/17/24 04:04 Bismuth Subsalicylate (Bismuth Subsalicylate Liqd 236 Ml) 15 ml PO PRN PRN PRN Reason: Loose Stool Stop: 04/17/24 04:04 Hydroxyzine HCl (Hydroxyzine Hcl 25 Mg Tab) 50 mg PO HSZ PRN PRN Reason: Insomnia Stop: 04/17/24 04:04 Hydroxyzine HCl (Hydroxyzine Hcl 25 Mg Tab) 25 mg PO Q4H PRN PRN Reason: Anxiety Stop: 04/17/24 04:04 Magnesium Hydroxide (Magnesium Hydroxide Susp 30 Ml Udc) 30 ml PO DAILY PRN PRN Reason: Constipation Stop: 04/17/24 04:04 Sertraline HCl (Sertraline Hcl 50 Mg Tablet) 50 mg PO QAM TATI Stop: 04/17/24 12:29 Last Admin: 03/19/24 08:41 Dose: 50 mg Sodium Chloride (Sodium Chloride 0.65% Na Soln 45 Ml ([place])) 1 - 2 sprays NA PRN PRN PRN Reason: Nasal Dryness/Congestion Stop: 04/17/24 04:04 Mental Health & Subst Abuse Tx Therapist Name of Therapist: Antonella Han Therapist's Date of Therapist Appointment: 03/23/24 Time of Therapist Appointment: 12:30 pm Therapy Appointment Comment: Telehealth Appointment through [employer] - Be logged in before 12:30 start Dye Tank Tender Name of Dye Tank Tender: None Post Discharge Appointments Primary Care Physician Name Of Family Doctor/PCP: Dr. Abhilash Antonio - [facility] (3) Carbon monoxide poisoning Encounter type: initial encounter Injury intent: intentional self-harm Qualified Code(s): T58.92XA - Toxic effect of carbon monoxide from unspecified source, intentional self-harm, initial encounter
[2024-03-19] MEDS: CHOLECALCIFEROL 125 MCG (5,000 UNITS) TAB PO SCH (15:40)
[2024-03-19 21:18] LABS: Marijuana Quant, GCMS Urine 33 ng/mL (<5)
--- NOTE | 2024-03-20 12:00 | Psychiatric Progress Note ---
Date of Service March 20, 2024 Impression / Recommendations Impression Laura Saldaña is a 43-year-old man with a history of depression admitted for self interrupted suicide attempt of carbon monoxide poisoning by connecting a hose to his exhaust and into his car in the context of escalating financial and work stressors. Diagnostically consistent with major depressive disorder and gambling disorder. A: Ongoing depression, processing impact of depression and stress on worsening of his gambling disorder. Tolerating medications so far. Discussed option for naltrexone given some evidence it can help with gambling disorder, he declines at this time, prefers to see impact of sertraline and behavioral modifications including therapy. Overall, I spent a total of 45 minutes with this case including review of chart records, nursing report, review of lab work, direct evaluation of the patient at bedside, counseling the patient, multidisciplinary team meeting, orders, and documentation in the electronic health record. (1) Suicide attempt: (2) MDD (major depressive disorder), recurrent episode, moderate: (3) Gambling disorder, moderate: (4) Carbon monoxide poisoning: Plan 03/20/2024: Continue current medications and tx plan. 03/19/2024: Continue medications and treatment plan. 03/18/2024: Start sertraline 50 mg daily. Encourage use of hydroxyzine for anxiety and sleep. Repeat EKG. Continue dexamethasone as per ED recomm endation. Order TSH w/ reflex, Vit D, B12. Inventory Assets Strengths: supports, employement Needs: outpatient connection, counseling Suicide Risk Level Suicide Risk Level: Moderate (q15 min suicide checks) (suicide attempt prior to admission and with ongoing depression but now denies current SI and feels safe in the hospital ) Risk Factors Assessment Male: Yes : Yes Do You Have Access To A Gun?: No Health Problems: Yes Mental Health Diagnoses: Yes Substance Use Disorders: No Previous Attempt: No Family History of Suicide: Yes Previous Psychiatric Hospitalization: No Hopelessness: No Protective Factors Assessment Mandaeism Beliefs: No : Yes Responsible for Young Children: No Employed: Yes Stable Relationships: Yes Supportive Family: Yes Good Rapport with Provider: Yes Absence of Any Risk Factors Above: No Interval History Identifying Information Laura Saldaña is a 43-year-old white male domiciled with partner h/o depression who presents with self interrupted suicide attempt of self-induced carbon monoxide poisoning by connecting a hose to his exhaust and into his car in the context of escalating financial and work stressors. Chief Complaint "I'm sleeping a little better". Review of Systems Sleep Information Total Hours of Sleep: 7 Sleep Comments: New overnight admission Meal Information Percent Meal Consumed - Breakfast: 100 Percent Meal Consumed - Lunch: 100 Percent Meal Consumed - Dinner: 100 Subjective Subjective Patient was seen & assessed and interval progress reviewed with treatment team nursing and social work. Describes that financial stressors and hopelessness and overall loss of pleasure seemed to drive the gambling addiction as this was the only time he didn't feel "dread" and "felt anything in terms of an emotion". Has been sleeping ok, at home hadn't been sleeping enough, only 5-6 hours per night due to not eating dinner until late and then being up early. He feels like his gambling got of control starting around the holidays in fall 2022 and worsened significantly and accelerated around winter 2022. Denies any current medication side effects. Physical Exam Psychiatric Orientation: alert and oriented x 3 Apperance: appropriately dressed and appropriately groomed Eye Contact: + fair eye contact Motor Behavior: no abnormal motor movements Speech: normal rate/rhythm/volume of speech (soft) Affect: + depressed affect Mood: + depressed mood and + anxious mood Thought Process: linear/logical thought process Thought Content: reality based without delusions and + hopelessness Suicidal Thoughts: denies suicidal thoughts (none currently but s/p suicide attempt) Homicidal Thoughts: denies homicidal thoughts Hallucinations: no auditory hallucinations and no visual hallucinations Cognition: recent memory grossly intact, remote memory grossly intact, attention grossly intact and language grossly intact Estimated Intelligence: consistent with education level Insight: + fair insight Judgment: + limited judgement Vital Signs (Past 24 Hours) Last Vital Signs Temp 37.0 C 03/20/24 06:44 Pulse 62 03/20/24 06:44 Resp 16 03/20/24 06:44 BP 108/70 03/20/24 06:45 Pulse Ox 96 03/20/24 06:44 O2 Del Method Room Air 03/20/24 06:44 O2 Flow Rate 10 03/17/24 23:00 Results & Data ([facility]) Laboratory Results Laboratory Results - last 24 hr 03/18/24 03/19/24 Unknown 09:41 Vitamin B12 192 25-OH Vitamin D Total 12.3 L TSH 0.916 U Marijuana THC Carboxy 33 H Drug Screen Comment SEE NOTE Current Inpatient Medications Current Inpatient Medications: Current Inpatient Medications Acetaminophen (Acetaminophen 325 Mg Tab) 650 mg PO Q4H PRN PRN Reason: Headache or Minor Fever Stop: 04/17/24 04:04 Al Hydrox/Mg Hydrox/Simethicone (Aluminum/Magnesium Susp 30 Ml Udc) 30 ml PO Q4H PRN PRN Reason: GI Upset Stop: 04/17/24 04:04 Bismuth Subsalicylate (Bismuth Subsalicylate Liqd 236 Ml) 15 ml PO PRN PRN PRN Reason: Loose Stool Stop: 04/17/24 04:04 Hydroxyzine HCl (Hydroxyzine Hcl 25 Mg Tab) 50 mg PO HSZ PRN PRN Reason: Insomnia Stop: 04/17/24 04:04 Hydroxyzine HCl (Hydroxyzine Hcl 25 Mg Tab) 25 mg PO Q4H PRN PRN Reason: Anxiety Stop: 04/17/24 04:04 Magnesium Hydroxide (Magnesium Hydroxide Susp 30 Ml Udc) 30 ml PO DAILY PRN PRN Reason: Constipation Stop: 04/17/24 04:04 Sertraline HCl (Sertraline Hcl 50 Mg Tablet) 50 mg PO QAM TATI Stop: 04/17/24 12:29 Last Admin: 03/20/24 08:45 Dose: 50 mg Sodium Chloride (Sodium Chloride 0.65% Na Soln 45 Ml ([place])) 1 - 2 sprays NA PRN PRN PRN Reason: Nasal Dryness/Congestion Stop: 04/17/24 04:04 Vitamin D (Cholecalciferol 125 Mcg (5,000 Units) Tab) 125 mcg PO QAM TATI Stop: 04/18/24 15:14 Last Admin: 03/20/24 08:45 Dose: 125 mcg Mental Health & Subst Abuse Tx Therapist Name of Therapist: Antonella Han Therapist's Date of Therapist Appointment: 03/23/24 Time of Therapist Appointment: 12:30 pm Therapy Appointment Comment: Telehealth Appointment through [employer] - Be logged in before 12:30 start Plastic Worker Name of Plastic Worker: None Post Discharge Appointments Primary Care Physician Name Of Family Doctor/PCP: Dr. Abhilash Antonio - [facility] (4) Carbon monoxide poisoning Encounter type: initial encounter Injury intent: intentional self-harm Qualified Code(s): T58.92XA - Toxic effect of carbon monoxide from unspecified source, intentional self-harm, initial encounter
--- NOTE | 2024-03-21 09:48 | Psychiatric Progress Note ---
Date of Service March 21, 2024 Impression / Recommendations Impression Laura Saldaña is a 43-year-old man with a history of depression admitted for self interrupted suicide attempt of carbon monoxide poisoning by connecting a hose to his exhaust and into his car in the context of escalating financial and work stressors. Diagnostically consistent with major depressive disorder and gambling disorder. A: Ongoing depression and anxiety with shame and guilt but also glad to have survived the suicide attempt and processing this. Tolerating his medications, will continue to monitor for possible side effects vs anxiety symptom. Overall, I spent a total of 40 minutes with this case including review of chart records, nursing report, review of lab work, direct evaluation of the patient at bedside, counseling the patient, multidisciplinary team meeting, orders, and documentation in the electronic health record. (1) Suicide attempt: (2) MDD (major depressive disorder), recurrent episode, moderate: (3) Gambling disorder, moderate: (4) Carbon monoxide poisoning: Plan 03/21/2024: Continue current medications and tx plan. 03/20/2024: Continue current medications and tx plan. 03/19/2024: Continue medications and treatment plan. 03/18/2024: Start sertraline 50 mg daily. Encourage use of hydroxyzine for anxiety and sleep. Repeat EKG. Continue dexamethasone as per ED recommendation. Order TSH w/ reflex, Vit D, B12. Inventory Assets Strengths: supports, employement Needs: outpatient connection, counseling Suicide Risk Level Suicide Risk Level: Moderate (q15 min suicide checks) (suicide attempt prior to admission and with ongoing depression but now denies current SI and feels safe in the hospital ) Risk Factors Assessment Male: Yes : Yes Do You Have Access To A Gun?: No Health Problems: Yes Mental Health Diagnoses: Yes Substance Use Disorders: No Previous Attempt: No Family History of Suicide: Yes Previous Psychiatric Hospitalization: No Hopelessness: No Protective Factors Assessment Congregational Beliefs: No : Yes Responsible for Young Children: No Employed: Yes Stable Relationships: Yes Supportive Family: Yes Good Rapport with Provider: Yes Absence of Any Risk Factors Above: No Interval History Identifying Information Laura Saldaña is a 43-year-old white male domiciled with partner h/o depression who presents with self interrupted suicide attempt of self-induced carbon monoxide poisoning by connecting a hose to his exhaust and into his car in the context of escalating financial and work stressors. Chief Complaint "Ok". Review of Systems Sleep Information Total Hours of Sleep: 7 Sleep Comments: Meal Information Percent Meal Consumed - Breakfast: 90 Percent Meal Consumed - Lunch: 100 Percent Meal Consumed - Dinner: 90 Subjective Subjective Patient was seen & assessed and interval progress reviewed with treatment team nursing and social work. Had good visits with his father and partner yesterday. Watched a movie with peers. Observed recreational group. Slept well last night. Denies any medication side effects except sometimes feels sense of tingling, he thinks this is related to anxiety. Reports combination of emotions related to suicide attempt including shame, guilt, relief, thankfulness to be alive. Processed suicide attempt and moving forward from this. Discussed impact of negative news information on his mood, thinking about how to possibly set limits on his intake of news information/social media. Physical Exam Psychiatric Orientation: alert and oriented x 3 Apperance: appropriately dressed and appropriately groomed Eye Contact: + fair eye contact Motor Behavior: no abnormal motor movements Speech: normal rate/rhythm/volume of speech (soft) Affect: + constricted affect Mood: + depressed mood and + anxious mood Thought Process: linear/logical thought process Thought Content: reality based without delusions and + guilt Suicidal Thoughts: denies suicidal thoughts (none currently but s/p suicide attempt) Homicidal Thoughts: denies homicidal thoughts Hallucinations: no auditory hallucinations and no visual hallucinations Cognition: recent memory grossly intact, remote memory grossly intact, attention grossly intact and language grossly intact Estimated Intelligence: consistent with education level Insight: + fair insight Judgment: + fair judgement Vital Signs (Past 24 Hours) Last Vital Signs Temp 36.9 C 03/21/24 06:36 Pulse 70 03/21/24 06:39 Resp 16 03/21/24 06:36 BP 99/64 L 03/21/24 06:39 Pulse Ox 97 03/21/24 06:36 O2 Del Method Room Air 03/21/24 06:36 O2 Flow Rate 10 03/17/24 23:00 Results & Data ([facility]) Current Inpatient Medications Current Inpatient Medications: Current Inpatient Medications Acetaminophen (Acetaminophen 325 Mg Tab) 650 mg PO Q4H PRN PRN Reason: Headache or Minor Fever Stop: 04/17/24 04:04 Al Hydrox/Mg Hydrox/Simethicone (Aluminum/Magnesium Susp 30 Ml Udc) 30 ml PO Q4H PRN PRN Reason: GI Upset Stop: 04/17/24 04:04 Bismuth Subsalicylate (Bismuth Subsalicylate Liqd 236 Ml) 15 ml PO PRN PRN PRN Reason: Loose Stool Stop: 04/17/24 04:04 Hydroxyzine HCl (Hydroxyzine Hcl 25 Mg Tab) 50 mg PO HSZ PRN PRN Reason: Insomnia Stop: 04/17/24 04:04 Hydroxyzine HCl (Hydroxyzine Hcl 25 Mg Tab) 25 mg PO Q4H PRN PRN Reason: Anxiety Stop: 04/17/24 04:04 Magnesium Hydroxide (Magnesium Hydroxide Susp 30 Ml Udc) 30 ml PO DAILY PRN PRN Reason: Constipation Stop: 04/17/24 04:04 Sertraline HCl (Sertraline Hcl 50 Mg Tablet) 50 mg PO QAM TATI Stop: 04/17/24 12:29 Last Admin: 03/21/24 08:39 Dose: 50 mg Sodium Chloride (Sodium Chloride 0.65% Na Soln 45 Ml ([place])) 1 - 2 sprays NA PRN PRN PRN Reason: Nasal Dryness/Congestion Stop: 04/17/24 04:04 Vitamin D (Cholecalciferol 125 Mcg (5,000 Units) Tab) 125 mcg PO QAM TATI Stop: 04/18/24 15:14 Last Admin: 03/21/24 08:39 Dose: 125 mcg Mental Health & Subst Abuse Tx Therapist Name of Therapist: Antonella Han Therapist's Date of Therapist Appointment: 03/23/24 Time of Therapist Appointment: 12:30 pm Therapy Appointment Comment: Telehealth Appointment through [employer] - Be logged in before 12:30 start Chemistry Technical Officer Name of Chemistry Technical Officer: None Post Discharge Appointments Primary Care Physician Name Of Family Doctor/PCP: Dr. Abhilash Antonio - [facility] (4) Carbon monoxide poisoning Encounter type: initial encounter Injury intent: intentional self-harm Qualified Code(s): T58.92XA - Toxic effect of carbon monoxide from unspecified source, intentional self-harm, initial encounter
--- NOTE | 2024-03-22 08:51 | Psychiatric Progress Note ---
Date of Service March 22, 2024 Impression / Recommendations Impression Laura Saldaña is a 43-year-old man with a history of depression admitted for self interrupted suicide attempt of carbon monoxide poisoning by connecting a hose to his exhaust and into his car in the context of escalating financial and work stressors. Diagnostically consistent with major depressive disorder and gambling disorder. A: Ongoing depression and anxiety but slow improvement. Still having some tingling/static sensation, unclear if possible side effect to sertraline, will continue to monitor, he prefers no further intervention for it at this time. Discussed naltrexone, he wants to read more about it before considering if he wants to start this. Ongoing motivational interviewing regarding gambling use disorder. Overall, I spent a total of 35 minutes with this case including review of chart records, nursing report, review of lab work, direct evaluation of the patient at bedside, counseling the patient, multidisciplinary team meeting, orders, and documentation in the electronic health record. (1) Suicide attempt: (2) MDD (major depressive disorder), recurrent episode, moderate: (3) Gambling disorder, moderate: (4) Carbon monoxide poisoning: Plan 03/22/2024: Continue current medications and tx plan. 03/21/2024: Continue current medications and tx plan. 03/20/2024: Continue current medications and tx plan. 03/19/2024: Continue medications and treatment plan. 03/18/2024: Start sertraline 50 mg daily. Encourage use of hydroxyzine for anxiety and sleep. Repeat EKG. Continue dexamethasone as per ED recommendation. Order TSH w/ reflex, Vit D, B12. Inventory Assets Strengths: supports, employement Needs: outpatient connection, counseling Suicide Risk Level Suicide Risk Level: Moderate (q15 min suicide checks) (suicide attempt prior to admission and with ongoing depression but now denies current SI and feels safe in the hospital ) Risk Factors Assessment Male: Yes : Yes Do You Have Access To A Gun?: No Health Problems: Yes Mental Health Diagnoses: Yes Substance Use Disorders: No Previous Attempt: No Family History of Suicide: Yes Previous Psychiatric Hospitalization: No Hopelessness: No Protective Factors Assessment Zoroastrianism Beliefs: No : Yes Responsible for Young Children: No Employed: Yes Stable Relationships: Yes Supportive Family: Yes Good Rapport with Provider: Yes Absence of Any Risk Factors Above: No Interval History Identifying Information Laura Saldaña is a 43-year-old white male domiciled with partner h/o depression who presents with self interrupted suicide attempt of self-induced carbon monoxide poisoning by connecting a hose to his exhaust and into his car in the context of escalating financial and work stressors. Chief Complaint "Not bad". Review of Systems Sleep Information Total Hours of Sleep: 7.15 Meal Information Percent Meal Consumed - Breakfast: 90 Percent Meal Consumed - Lunch: 100 Percent Meal Consumed - Dinner: 100 Subjective Subjective Patient was seen & assessed and interval progress reviewed with treatment team nursing and social work. Usually on the periphery of groups but attending. Has been reading and working on puzzles. Processing shame and guilt about suicide attempt. Did laundry yesterday. Today reports his mood is "not bad", still with some depression. At times has a sense of tingling/static feeling but feels this is manageable currently. Wonders about naltrexone given he feels he is away from impulse to [place] while in the hospital but isn't sure how he will feel once he leaves. Reviewed some of the gambling use disorder resources such as signing up for [place] through [place]. Provided resources related to this. Physical Exam Psychiatric Orientation: alert and oriented x 3 Apperance: appropriately dressed and appropriately groomed Eye Contact: + fair eye contact Motor Behavior: no abnormal motor movements Speech: normal rate/rhythm/volume of speech (soft) Affect: + constricted affect Mood: + depressed mood and + anxious mood Thought Process: linear/logical thought process Thought Content: reality based without delusions and + guilt Suicidal Thoughts: denies suicidal thoughts (none currently but s/p suicide attempt) Homicidal Thoughts: denies homicidal thoughts Hallucinations: no auditory hallucinations and no visual hallucinations Cognition: recent memory grossly intact, remote memory grossly intact, attention grossly intact and language grossly intact Estimated Intelligence: consistent with education level Insight: + fair insight Judgment: + fair judgement Vital Signs (Past 24 Hours) Last Vital Signs Temp 36.9 C 03/22/24 06:30 Pulse 98 H 03/22/24 06:31 Resp 16 03/22/24 06:30 BP 114/75 03/22/24 06:31 Pulse Ox 97 03/21/24 06:36 O2 Del Method Room Air 03/21/24 06:36 O2 Flow Rate 10 03/17/24 23:00 Results & Data ([facility]) Current Inpatient Medications Current Inpatient Medications: Current Inpatient Medications Acetaminophen (Acetaminophen 325 Mg Tab) 650 mg PO Q4H PRN PRN Reason: Headache or Minor Fever Stop: 04/17/24 04:04 Al Hydrox/Mg Hydrox/Simethicone (Aluminum/Magnesium Susp 30 Ml Udc) 30 ml PO Q4H PRN PRN Reason: GI Upset Stop: 04/17/24 04:04 Bismuth Subsalicylate (Bismuth Subsalicylate Liqd 236 Ml) 15 ml PO PRN PRN PRN Reason: Loose Stool Stop: 04/17/24 04:04 Hydroxyzine HCl (Hydroxyzine Hcl 25 Mg Tab) 50 mg PO HSZ PRN PRN Reason: Insomnia Stop: 04/17/24 04:04 Hydroxyzine HCl (Hydroxyzine Hcl 25 Mg Tab) 25 mg PO Q4H PRN PRN Reason: Anxiety Stop: 04/17/24 04:04 Magnesium Hydroxide (Magnesium Hydroxide Susp 30 Ml Udc) 30 ml PO DAILY PRN PRN Reason: Constipation Stop: 04/17/24 04:04 Sertraline HCl (Sertraline Hcl 50 Mg Tablet) 50 mg PO QAM TATI Stop: 04/17/24 12:29 Last Admin: 03/22/24 08:19 Dose: 50 mg Sodium Chloride (Sodium Chloride 0.65% Na Soln 45 Ml ([place])) 1 - 2 sprays NA PRN PRN PRN Reason: Nasal Dryness/Congestion Stop: 04/17/24 04:04 Vitamin D (Cholecalciferol 125 Mcg (5,000 Units) Tab) 125 mcg PO QAM TATI Stop: 04/18/24 15:14 Last Admin: 03/22/24 08:20 Dose: 125 mcg Mental Health & Subst Abuse Tx Therapist Name of Therapist: Antonella Han Therapist's Date of Therapist Appointment: 03/23/24 Time of Therapist Appointment: 12:30 pm Therapy Appointment Comment: Telehealth Appointment through [employer] - Be logged in before 12:30 start Wheel Tuner Name of Wheel Tuner: None Post Discharge Appointments Primary Care Physician Name Of Family Doctor/PCP: Dr. Abhilash Antonio - [facility] (4) Carbon monoxide poisoning Encounter type: initial encounter Injury intent: intentional self-harm Qualified Code(s): T58.92XA - Toxic effect of carbon monoxide from unspecified source, intentional self-harm, initial encounter
--- NOTE | 2024-03-23 08:32 | Psychiatric Progress Note ---
Date of Service March 23, 2024 Impression / Recommendations Impression Laura Saldaña is a 43-year-old man with a history of depression admitted for self interrupted suicide attempt of carbon monoxide poisoning by connecting a hose to his exhaust and into his car in the context of escalating financial and work stressors. Diagnostically consistent with major depressive disorder and gambling disorder. A: Mood improving, he would like to start naltrexone for off-label use for gambling disorder. Reviewed side effects including but not limited to potential for liver damage, GI symptoms. Working to set up support meeting, looking into option for case management services. Overall, I spent a total of 30 minutes with this case including review of chart records, nursing report, review of lab work, direct evaluation of the patient at bedside, counseling the patient, multidisciplinary team meeting, orders, and documentation in the electronic health record. (1) Suicide attempt: (2) MDD (major depressive disorder), recurrent episode, moderate: (3) Gambling disorder, moderate: (4) Carbon monoxide poisoning: Plan 03/23/2024: Start naltrexone 25mg po with dinner. 03/22/2024: Continue current medications and tx plan. 03/21/2024: Continue current medications and tx plan. 03/20/2024: Continue current medications and tx plan. 03/19/2024: Continue medications and treatment plan. 03/18/2024: Start sertraline 50 mg daily. Encourage use of hydroxyzine for anxiety and sleep. Repeat EKG. Continue dexamethasone as per ED recommendation. Order TSH w/ reflex, Vit D, B12. Inventory Assets Strengths: supports, employement Needs: outpatient connection, counseling Suicide Risk Level Suicide Risk Level: Moderate (q15 min suicide checks) (suicide attempt prior to admission and with ongoing depression but now denies current SI and feels safe in the hospital ) Risk Factors Assessment Male: Yes : Yes Do You Have Access To A Gun?: No Health Problems: Yes Mental Health Diagnoses: Yes Substance Use Disorders: No Previous Attempt: No Family History of Suicide: Yes Previous Psychiatric Hospitalization: No Hopelessness: No Protective Factors Assessment Quaker Beliefs: No : Yes Responsible for Young Children: No Employed: Yes Stable Relationships: Yes Supportive Family: Yes Good Rapport with Provider: Yes Absence of Any Risk Factors Above: No Interval History Identifying Information Laura Saldaña is a 43-year-old white male domiciled with partner h/o depression who presents with self interrupted suicide attempt of self-induced carbon monoxide poisoning by connecting a hose to his exhaust and into his car in the context of escalating financial and work stressors. Chief Complaint "I liked to start it". Review of Systems Sleep Information Total Hours of Sleep: 6.5 Meal Information Percent Meal Consumed - Breakfast: 75 Percent Meal Consumed - Lunch: 75 Percent Meal Consumed - Dinner: 100 Subjective Subjective Patient was seen & assessed and interval progress reviewed with treatment team nursing and social work. Attending groups. Mood improving. He'd like to start naltrexone after reviewing literature about it and side effects. Prefers to start at 25mg dose. Tingling sensation lessening. Sleeping well. Anxiety improving. Physical Exam Psychiatric Orientation: alert and oriented x 3 Apperance: appropriately dressed and appropriately groomed Eye Contact: good eye contact Motor Behavior: no abnormal motor movements Speech: normal rate/rhythm/volume of speech Affect: + constricted affect (but slight smile) Mood: + anxious mood Thought Process: linear/logical thought process Thought Content: reality based without delusions Suicidal Thoughts: denies suicidal thoughts (none currently but s/p suicide attempt) Homicidal Thoughts: denies homicidal thoughts Hallucinations: no auditory hallucinations and no visual hallucinations Cognition: recent memory grossly intact, remote memory grossly intact, attention grossly intact and language grossly intact Estimated Intelligence: consistent with education level Insight: + fair insight Judgment: + fair judgement Vital Signs (Past 24 Hours) Last Vital Signs Temp 36.5 C 03/23/24 06:31 Pulse 71 03/23/24 06:32 Resp 16 03/23/24 06:31 BP 96/69 L 03/23/24 06:32 Pulse Ox 97 03/21/24 06:36 O2 Del Method Room Air 03/21/24 06:36 O2 Flow Rate 10 03/17/24 23:00 Results & Data ([facility]) Current Inpatient Medications Current Inpatient Medications: Current Inpatient Medications Acetaminophen (Acetaminophen 325 Mg Tab) 650 mg PO Q4H PRN PRN Reason: Headache or Minor Fever Stop: 04/17/24 04:04 Al Hydrox/Mg Hydrox/Simethicone (Aluminum/Magnesium Susp 30 Ml Udc) 30 ml PO Q4H PRN PRN Reason: GI Upset Stop: 04/17/24 04:04 Bismuth Subsalicylate (Bismuth Subsalicylate Liqd 236 Ml) 15 ml PO PRN PRN PRN Reason: Loose Stool Stop: 04/17/24 04:04 Hydroxyzine HCl (Hydroxyzine Hcl 25 Mg Tab) 50 mg PO HSZ PRN PRN Reason: Insomnia Stop: 04/17/24 04:04 Hydroxyzine HCl (Hydroxyzine Hcl 25 Mg Tab) 25 mg PO Q4H PRN PRN Reason: Anxiety Stop: 04/17/24 04:04 Magnesium Hydroxide (Magnesium Hydroxide Susp 30 Ml Udc) 30 ml PO DAILY PRN PRN Reason: Constipation Stop: 04/17/24 04:04 Sertraline HCl (Sertraline Hcl 50 Mg Tablet) 50 mg PO QAM TATI Stop: 04/17/24 12:29 Last Admin: 03/22/24 08:19 Dose: 50 mg Sodium Chloride (Sodium Chloride 0.65% Na Soln 45 Ml ([place])) 1 - 2 sprays NA PRN PRN PRN Reason: Nasal Dryness/Congestion Stop: 04/17/24 04:04 Vitamin D (Cholecalciferol 125 Mcg (5,000 Units) Tab) 125 mcg PO QAM TATI Stop: 04/18/24 15:14 Last Admin: 03/22/24 08:20 Dose: 125 mcg Mental Health & Subst Abuse Tx Therapist Name of Therapist: Antonella Han Therapist's Date of Therapist Appointment: 03/23/24 Time of Therapist Appointment: 12:30 pm Therapy Appointment Comment: Telehealth Appointment through [facility] - Be logged in before 12:30 start Sales And Retail Management Recruiter Name of Sales And Retail Management Recruiter: None Post Discharge Appointments Primary Care Physician Name Of Family Doctor/PCP: Dr. Abhilash Antonio - MD Primary Care Date of Future Appointment with PCP: 03/30/2024 Time of Appointment with PCP: 3:30pm (4) Carbon monoxide poisoning Encounter type: initial encounter Injury intent: intentional self-harm Qualified Code(s): T58.92XA - Toxic effect of carbon monoxide from unspecified source, intentional self-harm, initial encounter
[2024-03-23] MEDS: NALTREXONE HCL 50 MG TAB PO SCH (17:10)
--- NOTE | 2024-03-24 08:57 | Psychiatric Progress Note ---
Date of Service March 24, 2024 Impression / Recommendations Impression Laura Saldaña is a 43-year-old man with a history of depression admitted for self interrupted suicide attempt of carbon monoxide poisoning by connecting a hose to his exhaust and into his car in the context of escalating financial and work stressors. Diagnostically consistent with major depressive disorder and gambling disorder. A: Mood continues to improve, tolerating first dose of naltrexone so far. Tingling sensation has not occurred today. Future-focused. Ongoing disposition planning. Overall, I spent a total of 25 minutes with this case including review of chart records, nursing report, review of lab work, direct evaluation of the patient at bedside, counseling the patient, multidisciplinary team meeting, orders, and documentation in the electronic health record. (1) Suicide attempt: (2) MDD (major depressive disorder), recurrent episode, moderate: (3) Gambling disorder, moderate: (4) Carbon monoxide poisoning: Plan 03/24/2024: Continue current medications and tx plan. 03/23/2024: Start naltrexone 25mg po with dinner. 03/22/2024: Continue current medications and tx plan. 03/21/2024: Continue current medications and tx plan. 03/20/2024: Continue current medications and tx plan. 03/19/2024: Continue medications and treatment plan. 03/18/2024: Start sertraline 50 mg daily. Encourage use of hydroxyzine for anxiety and sleep. Repeat EKG. Continue dexamethasone as per ED recommendation. Order TSH w/ reflex, Vit D, B12. Inventory Assets Strengths: supports, employement Needs: outpatient connection, counseling Suicide Risk Level Suicide Risk Level: Moderate (q15 min suicide checks) (suicide attempt prior to admission and with ongoing depression but now denies current SI, mood improving and feels safe in the hospital ) Risk Factors Assessment Male: Yes : Yes Do You Have Access To A Gun?: No Health Problems: Yes Mental Health Diagnoses: Yes Substance Use Disorders: No Previous Attempt: No Family History of Suicide: Yes Previous Psychiatric Hospitalization: No Hopelessness: No Protective Factors Assessment Sikh Beliefs: No : Yes Responsible for Young Children: No Employed: Yes Stable Relationships: Yes Supportive Family: Yes Good Rapport with Provider: Yes Absence of Any Risk Factors Above: No Interval History Identifying Information Laura Saldaña is a 43-year-old white male domiciled with partner h/o depression who presents with self interrupted suicide attempt of self-induced carbon monoxide poisoning by connecting a hose to his exhaust and into his car in the context of escalating financial and work stressors. Chief Complaint "Prettty good". Review of Systems Sleep Information Total Hours of Sleep: 8 Meal Information Percent Meal Consumed - Breakfast: 100 Percent Meal Consumed - Lunch: 100 Percent Meal Consumed - Dinner: 100 Subjective Subjective Patient was seen & assessed and interval progress reviewed with treatment team nursing and social work. Attending groups, mood improving. Support meeting scheduled for this afternoon. Sleeping well. No side effects from naltrexone. Spoke with his new outpatient caser in. Physical Exam Psychiatric Orientation: alert and oriented x 3 Apperance: appropriately dressed and appropriately groomed Eye Contact: good eye contact Motor Behavior: no abnormal motor movements Speech: normal rate/rhythm/volume of speech Affect: euthymic affect Mood: no depressed mood and no anxious mood Thought Process: linear/logical thought process Thought Content: reality based without delusions Suicidal Thoughts: denies suicidal thoughts Homicidal Thoughts: denies homicidal thoughts Hallucinations: no auditory hallucinations and no visual hallucinations Cognition: recent memory grossly intact, remote memory grossly intact, attention grossly intact and language grossly intact Estimated Intelligence: consistent with education level Insight: + fair insight Judgment: + fair judgement Vital Signs (Past 24 Hours) Last Vital Signs Temp 36.8 C 03/24/24 06:00 Pulse 64 03/24/24 06:00 Resp 16 03/24/24 06:00 BP 101/60 03/24/24 06:00 Pulse Ox 97 03/24/24 06:00 O2 Del Method Room Air 03/24/24 06:00 O2 Flow Rate 10 03/17/24 23:00 Results & Data ([facility]) Current Inpatient Medications Current Inpatient Medications: Current Inpatient Medications Acetaminophen (Acetaminophen 325 Mg Tab) 650 mg PO Q4H PRN PRN Reason: Headache or Minor Fever Stop: 04/17/24 04:04 Al Hydrox/Mg Hydrox/Simethicone (Aluminum/Magnesium Susp 30 Ml Udc) 30 ml PO Q4H PRN PRN Reason: GI Upset Stop: 04/17/24 04:04 Bismuth Subsalicylate (Bismuth Subsalicylate Liqd 236 Ml) 15 ml PO PRN PRN PRN Reason: Loose Stool Stop: 04/17/24 04:04 Hydroxyzine HCl (Hydroxyzine Hcl 25 Mg Tab) 50 mg PO HSZ PRN PRN Reason: Insomnia Stop: 04/17/24 04:04 Hydroxyzine HCl (Hydroxyzine Hcl 25 Mg Tab) 25 mg PO Q4H PRN PRN Reason: Anxiety Stop: 04/17/24 04:04 Magnesium Hydroxide (Magnesium Hydroxide Susp 30 Ml Udc) 30 ml PO DAILY PRN PRN Reason: Constipation Stop: 04/17/24 04:04 Naltrexone HCl (Naltrexone Hcl 50 Mg Tab) 25 mg PO DAILYBD TATI Stop: 04/22/24 17:14 Last Admin: 03/23/24 17:10 Dose: 25 mg Sertraline HCl (Sertraline Hcl 50 Mg Tablet) 50 mg PO QAM TATI Stop: 04/17/24 12:29 Last Admin: 03/24/24 08:26 Dose: 50 mg Sodium Chloride (Sodium Chloride 0.65% Na Soln 45 Ml ([place])) 1 - 2 sprays NA PRN PRN PRN Reason: Nasal Dryness/Congestion Stop: 04/17/24 04:04 Vitamin D (Cholecalciferol 125 Mcg (5,000 Units) Tab) 125 mcg PO QAM TATI Stop: 04/18/24 15:14 Last Admin: 03/24/24 08:26 Dose: 125 mcg Mental Health & Subst Abuse Tx Therapist Name of Therapist: Antonella Han Therapist's Date of Therapist Appointment: 03/23/24 Time of Therapist Appointment: 12:30 pm Therapy Appointment Comment: Telehealth Appointment through [facility] - Be logged in before 12:30 start Media Consultant Name of Media Consultant: None Post Discharge Appointments Primary Care Physician Name Of Family Doctor/PCP: Dr[facility] Abhilash Antonio [facility] Primary Care Date of Future Appointment with PCP: 03/30/2024 Time of Appointment with PCP: 3:30pm (4) Carbon monoxide poisoning Encounter type: initial encounter Injury intent: intentional self-harm Qualified Code(s): T58.92XA - Toxic effect of carbon monoxide from unspecified source, intentional self-harm, initial encounter
--- NOTE | 2024-03-25 08:31 | Discharge Summary ---
Date of Service March 25, 2024 History of Present Illness Per admission H&P by Dr. Khanna: Patient reports yesterday morning he felt suicidal and did not go to work. He drove around for hours and he found a spot in the [place]. He brought a garden hose from home. He contemplated using it for hours and was back and forth about it. He connected a hose to his exhaust and into his car, raised the windows, and ran his car for "5 to 10 minutes". He reported having sinus inflammation, shortness of breath and the windows fogged up. He turned off the car and then contacted his partner. He got out of the car and sat in front of the car and then his partner arrived and drove him to the hospital. He denies having suicidal ideation in the prior days. He complained of ongoing anxiety for the past few months. Reports that his work has been more stressful due to increased demands and because of less revenue in the company he is making less money and that has caused financial stressors. Additionally is ruminating about medical concerns about his overall wellbeing. Regularly watches the news and the recent wars have also been stressing him out. Reports for the past 4 months has been more isolated, has decreased appetite, has decreased interest in his activities such as golfing, has decreased conc entration, has less motivation, low mood, and less pleasure in his activities. Reports he is able to fall and stay asleep. He denies a history of decreased sleep with increased mood, energy, goal directed activity. He denies a history of auditory or visual hallucinations. He reports past suicidal ideation in the summer 2000. Reports being stressed and upset after the events of 911. During that time he attempted to overdose on sleeping pills and alcohol and woke up the next day with vomit around him and feeling "terrible". Family psychiatric history significant for maternal grandfather who had alcoholism and depression and committed suicide. He denies other mental health problems or substance use problems in his family. Reports having a supportive childhood. Grew up in [place]. He denies physical/emotional/sexual abuse. 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 He lives with his partner of 5 years. He has 1 biological brother, 1 biological sister and 1 adopted sibling. Reports daily caffeine intake in the mornings. 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 Reports smoking cannabis flower 2-3 times weekly to enhance experiences. He denies history of drug or alcohol problems. Medical problems significant for testicular cancer in his teens that was not metastatic and treated with surgery; Hemorrhoids Physical Exam Vital Signs (Past 24 Hours) Last Vital Signs Temp 35.9 C L 03/25/24 06:00 Pulse 61 03/25/24 06:00 Resp 16 03/25/24 06:00 BP 114/68 03/25/24 06:00 Pulse Ox 97 03/24/24 06:00 O2 Del Method Room Air 03/24/24 06:00 O2 Flow Rate 10 03/17/24 23:00 See admission H&P and DOD summary. Principal Diagnosis Major Depressive Disorder Psychiatric Data See daily stay summary. In short, patient was engaged with the social/therapeutic milieu of the unit, safety was maintained and the patient was cooperative with care. Medication changes included initiation of sertraline 50mg for MDD and naltrexone 25mg daily as off-label for gambling disorder and they tolerated this well. A family session was held and safety plan was completed prior to discharge. He actively and insightfully participated in safety planning and in discussions about ways to seek support and recognizing warning signs and utilizing coping skills. Reviewed importance of seeking emergency care should SI intensify, worsen or should they feel unsafe in the future which they agree to do. On the day of discharge he stated his mood was "good" and remained future-oriented including seeing his partner, being around his cats, having coffee, self-care activities, being outside and engaging in aftercare appointments for therapy and case management. Day of Discharge Assessment Today the patient voices readiness for discharge. They note improvement in mood and anxiety. They deny thoughts of harm to self or others. Thoughts are organized and they are clinically improved from admission. There is no evidence of psychosis. They improved in the hospital with support and medication adjustments. They agree to take medications as prescribed and keep follow-up appointments. At the time of the discharge they are deemed to be stable and appropriate for outpatient level of care. They are not deemed to be at imminent risk of harm to self or others. They are aware of emergency and crisis services. Knows to call 911 or go to nearest emergency care center if in a crisis which cannot be handled as an outpatient. Transition of Care Transition Of Care Record: was reviewed with the patient Advance Directives Advance Directives Information Provided: Yes Advance Directives: No Mental Health Advance Directive: No Advance Directives on File: No Living Will: No Power of Photographic Processor: No Advance Directives Reason:: Declines as Mental Health Visit. Suicide Risk Level Suicide Risk Level Comments: Acute risk is low given improvement in mood and denial of SI, lack of access to lethal means, plan to avoid substance use, hopefulness. Chronic risk is moderate given some non-modifiable risk factors: psychiatric co-morbid diagnoses, periods of impulsivity, prior attempt, family history of by suicide but also with protective factors including: employed, good social support, sense of responsibility to family and social supports, outpatient care in place, positive coping skills, positive problem solving, capacity to establish therapeutic alliance, willingness to engage with treatment and capacity for self- observation. Counseled on ways to reduce acute and chronic risk including engaging with outpatient providers, using safety plan if needed, utilizing supports, taking medication, and using coping skills. Modifiable risk factors of SI and depression were addressed during hospitalization through development of new coping skills, family meeting, safety planning, and medication adjustments. Risk Factors Assessment Male: Yes : Yes Do You Have Access To A Gun?: No Health Problems: No Mental Health Diagnoses: Yes Substance Use Disorders: No Previous Attempt: Yes Family History of Suicide: Yes Previous Psychiatric Hospitalization: No Hopelessness: No Protective Factors Assessment Nondenominational Beliefs: No : Yes Responsible for Young Children: No Employed: Yes Stable Relationships: Yes Supportive Family: Yes Good Rapport with Provider: Yes Absence of Any Risk Factors Above: No Discharge Data Lab Results 03/17/24 03/17/24 03/17/24 21:05 21:26 23:00 WBC 13.94 H RBC 5.55 Hgb 17.1 Hct 49.1 MCV 88.5 MCH 30.8 MCHC 34.8 RDW Std Deviation 41.5 RDW Coeff of Jose Francisco 12.8 Plt Count 349 MPV 8.7 L Immature Gran % (Auto) 0.2 Neut % (Auto) 57.1 Lymph % (Auto) 34.8 Angelina % (Auto) 5.9 Eos % (Auto) 1.1 Baso % (Auto) 0.9 Neut # (Auto) 7.97 H Lymph # (Auto) 4.85 H Angelina # (Auto) 0.82 H Eos # (Auto) 0.15 Baso # (Auto) 0.12 Immature Gran # (Auto) 0.03 PT 10.2 INR 0.9 APTT 27 PTT Ratio 1.0 VBG pH 7.50 H VBG pCO2 29 L VBG pO2 < 20 VBG HCO3 23 VBG O2 Saturation < 60.0 VBG Base Excess 0.4 Carboxyhemoglobin 13.8 H* 7.3 Sodium 139 Potassium 4.0 Chloride 103 Carbon Dioxide 22 Anion Gap 14 H BUN 7 Creatinine 0.82 Est Cr Clr Drug Dosing 107.3 Est GFR ( Amer) 127.3 Est GFR (Non-Af Amer) 109.8 BUN/Creatinine Ratio 8.5 L Glucose 85 Calcium 9.9 Magnesium 2.4 Total Bilirubin 0.8 AST 21 ALT 17 Alkaline Phosphatase 68 Total Creatine Kinase 113 Troponin I High Sens 3.2 Total Protein 8.4 H Albumin 5.2 H Globulin 3.2 Albumin/Globulin Ratio 1.6 Lipase 21 Vitamin B12 25-OH Vitamin D Total TSH Urine Color Urine Appearance Urine pH Ur Specific [place] Urine Protein Urine Glucose (UA) Urine Ketones Urine Blood Urine Nitrite Urine Bilirubin Urine Urobilinogen Ur Leukocyte Esterase Salicylates < 3.0 L Urine Opiates Screen Ur Methadone, Qual Urine Fentanyl Screen Acetaminophen < 3 L Urine Barbiturates Ur Phencyclidine (PCP) U Amphetamin/Meth Scrn MDMA (Ecstasy) Screen U Benzodiazepines Scrn Ur Cocaine Metabolite U Marijuana (THC) Screen U Marijuana THC Carboxy Drug Screen Comment Ethyl Alcohol mg/dL 132.3 H SARS-CoV-2, RNA, NAAT NEGATIVE 03/18/24 03/19/24 Unknown 09:41 WBC RBC Hgb Hct MCV MCH MCHC RDW Std Deviation RDW Coeff of Jose Francisco Plt Count MPV Immature Gran % (Auto) Neut % (Auto) Lymph % (Auto) Angelina % (Auto) Eos % (Auto) Baso % (Auto) Neut # (Auto) Lymph # (Auto) Angelina # (Auto) Eos # (Auto) Baso # (Auto) Immature Gran # (Auto) PT INR APTT PTT Ratio VBG pH VBG pCO2 VBG pO2 VBG HCO3 VBG O2 Saturation VBG Base Excess Carboxyhemoglobin Sodium Potassium Chloride Carbon Dioxide Anion Gap BUN Creatinine Est Cr Clr Drug Dosing Est GFR ( Amer) Est GFR (Non-Af Amer) BUN/Creatinine Ratio Glucose Calcium Magnesium Total Bilirubin AST ALT Alkaline Phosphatase Total Creatine Kinase Troponin I High Sens Total Protein Albumin Globulin Albumin/Globulin Ratio Lipase Vitamin B12 192 25-OH Vitamin D Total 12.3 L TSH 0.916 Urine Color Yellow Urine Appearance Clear Urine pH 6.0 Ur Specific [place] 1.006 Urine Protein Negative Urine Glucose (UA) Negative Urine Ketones Negative Urine Blood Negative Urine Nitrite Negative Urine Bilirubin Negative Urine Urobilinogen Negative Ur Leukocyte Esterase Negative Salicylates Urine Opiates Screen Neg Ur Methadone, Qual Neg Urine Fentanyl Screen Neg Acetaminophen Urine Barbiturates Neg Ur Phencyclidine (PCP) Neg U Amphetamin/Meth Scrn Neg MDMA (Ecstasy) Screen Neg U Benzodiazepines Scrn Neg Ur Cocaine Metabolite Neg U Marijuana (THC) Screen Pos H U Marijuana THC Carboxy 33 H Drug Screen Comment SEE NOTE Ethyl Alcohol mg/dL SARS-CoV-2, RNA, NAAT Hospital Course (1) Suicide attempt: (2) Gambling disorder, moderate: (3) Carbon monoxide poisoning: (4) MDD (major depressive disorder), recurrent episode, severe: Plan 03/24/2024: Continue current medications and tx plan. 03/23/2024: Start naltrexone 25mg po with dinner. 03/22/2024: Continue current medications and tx plan. 03/21/2024: Continue current medications and tx plan. 03/20/2024: Continue current medications and tx plan. 03/19/2024: Continue medications and treatment plan. 03/18/2024: Start sertraline 50 mg daily. Encourage use of hydroxyzine for a nxiety and sleep. Repeat EKG. Continue dexamethasone as per ED recommendation. Order TSH w/ reflex, Vit D, B12. Mental Health & Subst Abuse Tx Therapist Name of Therapist: [facility]- Antonella Tran Therapist's Date of Therapist Appointment: 03/23/24 Time of Therapist Appointment: 12:30 pm Therapy Appointment Comment: Telehealth Appointment through [facility] - Be logged in before 12:30 start Therapist Release of Information: Obtained, Reviewed and Signed Lathe Turner Name of Lathe Turner: [facility] Phone Number for Lathe Turner: Case Management Appointment Comment: They will follow up with you via phone to complete intake. Lathe Turner Release of Information: Obtained, Reviewed and Signed Post Discharge Appointments Primary Care Physician Name Of Family Doctor/PCP: [facility] - Dr. Abhilash Antonio Primary Care Date of Future Appointment with PCP: 03/30/2024 Time of Appointment with PCP: 3:30pm Primary Care Release of Information: Obtained, Reviewed and Signed Contact Information Discharge Discharge Address: [place] [id number] Discharge Plan Discharge Items Patient Disposition: Home - Self-Care Reason For Visit: SUICIDAL IDEATION Discharge Diagnosis: Major Depressive Disorder Activity: Resume your previous activity Non-emergency contact: Primary Care Provider, Therapist and Clinical Laboratory Director Call non-emergency contact if: you have any medication questions and your symptoms worsen Follow-up/Referrals: Abhilash Antonio, [Primary Care Provider] - Diet: Regular Addtl Attending Provider Instructions: SPECIAL CARE INSTRUCTIONS: 1. Follow through with your scheduled aftercare appointments. If unable to keep an appointment, please call to reschedule. 2. Take your medication only as prescribed. Medication should not be changed or stopped without the approval of your doctor. In the event of worsening symptoms or concerns about side effects, contact your doctor immediately. 3. Utilize new healthy coping skills, anger management skills, and stress management skills learned during your hospitalization. Journal feelings and process them with a support person. Identify stressors or situations that may result in relapse, deterioration or inappropriate behaviors and develop a plan to deal with those issues. 4. If your coping skills are ineffective and you are in crisis, contact your outpatient providers for direction. If unable to reach your providers, please call the [facility] CRISIS LINE AT , go to the [facility] walk-in center at [address] [place], [place], or go to the closest Emergency Room. 5. Avoid alcohol and un-prescribed drugs. 6. You have been provided with the Mental Health Advance Directives Pamphlet for your review. 7. Your condition is stable for discharge to outpatient level of care, but recovery is an ongoing process. Ifthoughts to harm yourself or others return, follow the safety plan developed during your stay. Planning for a safe return home includes securing weapons. Our treatment team recommends weaponsbe removed from the home until your outpatient provider reassesses your progress. In rare cases where the items themselvescannot be removed, guns and ammunitionshould be secured separatelyand keys stored by a reliable personoutside of the home. If you were admitted on an involuntary commitment, the police or other legal authorities may be involved in this process. AFTERCARE APPOINTMENTS: * Please call your insurance company prior to your scheduled appointment to confirm your aftercare providers are covered. Take your insurance information to your appointments. WHO TO CALL AND WHEN: Medical Emergencies: For questions or emergencies related to your hospital stay, please contact the Inpatient Behavioral Health Unit at [phone]. A binding bench worker is on-call 21/04 for the Behavioral Health Unit for emergencies At any time you feel your situation is an emergency, you may also call 911 immediately. National Crisis Hotline: 386 Pending Studies at Discharge: No Stand-Alone Forms: My [facility] Medications and DC Order Prescriptions: New naltrexone 50 mg Tablet 25 mg PO DAILY 30 Days Qty: 15 0RF sertraline 50 mg Tablet 50 mg PO QAM 30 Days Qty: 30 0RF cholecalciferol (vitamin D3) 125 mcg (5,000 unit) Tablet 125 mcg PO QAM Qty: 1 0RF Discharge Orders: Discharge Order (Routine); Ordered 03/25/24 Ordered By: Rosemarie Nixon Admission Data Admit Date/Time: 03/18/24 03:27 Attending Provider: Rosemarie Nixon Admit Provider: Quentin Khanna Primary Care Provider: Abhilash Antonio Other Interventions: Discharge Summary Assessment (RN) Last Done: 03/25/24 10:08 PSY Interdisciplinary Discharge Planning Last Done: 03/25/24 10:32 Coding Level of Care Code 22622 D/C day mgmt > 30 min Diagnoses Suicide attempt T14.91XA Gambling disorder, moderate F63.0 Carbon monoxide poisoning T58.92XA Encounter type: initial encounter Injury intent: intentional self-harm MDD (major depressive disorder), recurrent episode, severe F33.2
== END 2024-03-25 10:40 | disposition home or self-care (01) | DRG 918 ==
LOC: ED 20:38 → 3S 03-18 03:27 → SUATTDRO 03-18 03:27 → 3S 03-18 03:52